=== PATIENT | male | born 1955 | race Caucasian/White ===

== ENCOUNTER → 2017-07-23 08:38 | Outpatient (POV) | payer MEDICARE, MEDICAID, SELFPAY | PROVIDERS: Visit Provider Nurse Practitioner Acute Care | DX: Z00.00 Encounter for general adult medical examination without abnormal findings (principal) ==

== ENCOUNTER → 2017-11-02 07:49 | Outpatient (CLI) | payer MEDICARE, MEDICAID, SELFPAY ==
--- NOTE | 2017-11-02 07:52 | US_ITS ---
US abdomen limited COMPARISON: Ultrasound right upper quadrant 05/05/2016 HISTORY: Previous history of gallstone, epigastric discomfort TECHNIQUE: Targeted ultrasound right upper quadrant FINDINGS: The liver is normal size and shows overall somewhat increased and coarsened echogenicity. The patient has a history of hepatitis C. The pancreas is normal. The gallbladder is normal in size. There is a focal echo with acoustic shadowing consistent with a partially calcified gallstone similar in size and appearance to the previous study. The common bile duct is normal caliber. The right kidney measures 9.2 x 5.1 x 6.8 cm and shows a good cortical medullary junction with no abnormality. IMPRESSION: Somewhat heterogenic in overall increased liver parenchyma echogenicity consistent with diffuse fatty infiltration and/or hepatitis C. Stable partially calcified gallstone similar in size to the previous exam
== END ==
PROVIDERS: PCP Family Medicine; Visit Provider Nurse Practitioner Acute Care
DX: K74.60 Unspecified cirrhosis of liver (principal)
CPT/HCPCS: 76705

== ENCOUNTER → 2018-01-14 09:13 | Outpatient (POV) | payer MEDICARE, MEDICAID, SELFPAY | PROVIDERS: Visit Provider Nurse Practitioner Acute Care | DX: Z00.00 Encounter for general adult medical examination without abnormal findings (principal) ==

== ENCOUNTER → 2018-01-17 10:39 | Outpatient (CLI) | payer MEDICARE, MEDICAID, SELFPAY ==
[2018-01-17 11:05] LABS: Anion Gap 9.7 mEq/L (5-15); Blood Urea Nitrogen 11 mg/dL (7-18); Carbon Dioxide 28 mmol/L (21.0-32.0); Chloride 99 mmol/L (98-107); Creatinine,Serum 1.05 mg/dL (0.70-1.30); Estimated Glomerular Filt Rate 72 ml/min (>60); GFR (African American) 87 ML/MIN (>60); Glucose 98 mg/dL (74-106); Potassium 3.7 mmoL/L (3.5-5.1); Sodium 133 mmol/L (136-145)
--- NOTE | 2018-01-17 12:06 | CT_ITS ---
CT abdomen w con CLINICAL INDICATION: Cirrhosis, hepatic mass ITS.REASON: HEPATIC MASS ORDERING PHYSICIAN: Valerie Roca PATIENT AGE: 62 years COMPARISON: None TECHNIQUE: Three-phase post enhanced images obtained Axial images obtained with sagittal and coronal reformats. All CT scans at the facility use one or more dose reduction, viz: automated exposure control; ma/kV adjustment per patient size (including targeted exams where dose is matched to indication; i.e. head); or iterative reconstruction technique. PROCEDURE: Oral Contrast: None IV Contrast: 75 mL of Isovue-370. FINDINGS: There are atelectatic or fibrotic changes in the right lung base posteriorly. A gallstone is noted. No biliary dilatation. No enhancing liver lesions. The liver margin is smooth present. The portal vein does not appear enlarged measuring 11 mm in AP dimension There is mild diffuse hepatic steatosis. There is a 5 mm isodensity in the intersegment of the right hepatic lobe. An 8 mm isodensity is present just posterior to the right portal vein in the right hepatic lobe. This may be due to small cyst. The spleen, pancreas, and adrenal glands have an unremarkable appearance. No renal mass or hydronephrosis. The jejunal loops are somewhat thickened. There is an area of dense calcification in the mid abdomen slightly towards the left probably related to calcified lymph nodes. This area measures approximately 2 cm. The celiac and superior mesenteric artery and renal arteries have an unremarkable appearance. IMPRESSION: 1. Mild fatty liver. 2. There are 2 isodense lesions of liver which are too small to categorize and may be due to small cysts. No suspicious liver lesions evident 3. Thickening of the jejunum which may be seen with enteritis. 4. Cholelithiasis
== END ==
PROVIDERS: Visit Provider Nurse Practitioner Acute Care
DX: K74.69 Other cirrhosis of liver (principal)
CPT/HCPCS: 36415; 74160; 80048; Q9967

== ENCOUNTER → 2018-03-25 12:41 | Outpatient (POV) | payer MEDICARE, MEDICAID, SELFPAY | PROVIDERS: Visit Provider Nurse Practitioner Acute Care | DX: Z00.00 Encounter for general adult medical examination without abnormal findings (principal) ==

== ENCOUNTER → 2018-04-17 07:40 | Outpatient (CLI) | payer MEDICARE, MEDICAID, SELFPAY ==
--- NOTE | 2018-04-17 08:00 | US_ITS ---
US abdomen limited History:Cirrhosis, abnormal liver functions Ordering Physician:Valerie Roca Patient Age: 63 years Comparison:11/02/2017 Findings: Pancreas:Unremarkable. No obvious mass or abnormal fluid collection. No ductal dilatation Liver:No focal liver lesions demonstrated. Homogeneous echogenicity. No intrahepatic biliary ductal dilatation evident. There is slight increased echogenicity of the liver suggesting hepatic steatosis Right Kidney:Unremarkable. Normal size and echogenicity. No hydronephrosis Gallbladder:Gallstone noted. No gallbladder wall thickening, pericholecystic fluid, or biliary dilatation. Impression: 1. Cholelithiasis. 2. Fatty liver
== END ==
PROVIDERS: PCP Family Medicine; Visit Provider Nurse Practitioner Acute Care
DX: K74.60 Unspecified cirrhosis of liver (principal); R94.5 Abnormal results of liver function studies
CPT/HCPCS: 76705

== ENCOUNTER → 2018-06-24 13:19 | Outpatient (POV) | payer MEDICARE, MEDICAID, SELFPAY | PROVIDERS: Visit Provider Nurse Practitioner Acute Care | DX: Z00.00 Encounter for general adult medical examination without abnormal findings (principal) ==

== ENCOUNTER → 2018-09-16 10:13 | Outpatient (POV) | payer MEDICARE, MEDICAID, SELFPAY | PROVIDERS: Visit Provider Nurse Practitioner Acute Care | DX: Z00.00 Encounter for general adult medical examination without abnormal findings (principal) ==

== ENCOUNTER → 2018-10-18 07:38 | Outpatient (CLI) | payer MEDICARE, MEDICAID, SELFPAY ==
--- NOTE | 2018-10-18 07:44 | US_ITS ---
US abdomen limited HISTORY:Follow-up cirrhosis ORDERING PHYSICIAN: Valerie Roca PATIENT AGE: 63 years Comparison: Previous ultrasound right upper quadrant pain 318 Procedure Sagittal, transverse and decubitus imaging of the gallbladder was performed. FINDINGS GALLBLADDER -gallstone evident measuring nearly 1 cm size. Thick echogenic sludge also observed extending to the neck of the gallbladder with echogenic foci. Cannot exclude some additional small stones here. Gallbladder wall normal thickness with no inflammatory changes. LIVER: . No focal liver lesions. Diffuse increased echogenicity liver. Likely reflects hepatic steatosis No intrapelvic bili ductal dilatation. Portal vein normal size and normal direction flow. Takes vein survey unremarkable PANCREAS: There is fair visualization of pancreas., Overall unremarkable. Head & body pancreas best visualized. Tail obscured RIGHT KIDNEY: Normal size 8.7 cm in length. Normal appearance.. No hydronephrosis. IMPRESSION: .... 1. Gallstone again noted. . Also note Thick echogenic sludge filling the neck of the gallbladder.. There are some specular echoes within this sludge-Cannot other tiny stones in this region. 2. Diffuse fatty changes of liver. No focal lesion. Portal vein normal
== END ==
PROVIDERS: PCP Family Medicine; Visit Provider Nurse Practitioner Acute Care
DX: K74.60 Unspecified cirrhosis of liver (principal)
CPT/HCPCS: 76705

== ENCOUNTER → 2019-07-28 10:09 | Outpatient (POV) | payer MEDICARE, MEDICAID, SELFPAY | PROVIDERS: Visit Provider Nurse Practitioner Family | DX: Z00.00 Encounter for general adult medical examination without abnormal findings (principal) ==

== ENCOUNTER → 2019-07-30 08:11 | Outpatient (CLI) | payer MEDICARE, MEDICAID, SELFPAY ==
--- NOTE | 2019-07-30 08:15 | US_ITS ---
PROCEDURE: US ABDOMEN LIMITED CLINICAL INDICATION: Follow-up Pedroza cirrhosis,GERD,HEPATITIS C COMPARISON: [facility] US abdomen limited from 10/18/2018 FINDINGS: PANCREAS: Unremarkable. No obvious mass or abnormal fluid collection. No ductal dilatation. There is mild diffuse fatty infiltration of the pancreas. LIVER: Again noted is diffuse and somewhat coarsened appearing increased echogenicity consistent with hepatic steatosis. There are no focal lesions seen. The portal vein is normal in caliber and flow hepatopetal RIGHT KIDNEY: The right kidney measures 8.4 x 4.7 by 7.0 cm and appears sonographically normal. GALLBLADDER: The gallbladder is normal in size. Again noted is a calcified gallstone which is mobile within the gallbladder showing prominent acoustic shadowing beneath. The gallstone is basically unchanged in size and overall appearance from the previous exam. IMPRESSION: Basically stable appearing liver with diffuse hepatic steatosis, no significant lobulation of the liver contour noted. Stable calcified gallstone as noted Dictated by: Dr. Jean-Paul Price MD 07/30/2019 13:[address] Jean-Paul Price MD in [place] 07/30/2019 13:53
== END ==
PROVIDERS: PCP Family Medicine; Visit Provider Nurse Practitioner Family
DX: K74.69 Other cirrhosis of liver (principal); K21.9 Gastro-esophageal reflux disease without esophagitis; B18.2 Chronic viral hepatitis C
CPT/HCPCS: 76705

== ENCOUNTER 2019-10-08 10:28 | Inpatient (IN) ==
[2019-10-08 12:15] LABS: Basophils % 0.6 % (0.1-2.0); Eosinophils % 0.3 % (0.1-12.0); Hematocrit 42.9 % (42.0-52.0); Hemoglobin 14.6 g/dL (14.1-18.0); Lymphocytes # 0.9 K/mm3 (0.7-4.5); Lymphocytes % 17.5 % (10-50); Mean Corpuscular Volume 96.5 fl (80-94); Mean Platelet Volume 8.3 fl (7.4-10.4); Monocytes # 0.5 K/mm3 (0.1-1.0); Monocytes % 8.3 % (1.7-9.3); Neutrophils % 73.3 % (37.0-80.0); Platelet Count 158 K/mm3 (142-424); Red Blood Count 4.44 M/mm3 (4.60-6.20); Red Cell Distribution Width 13.1 % (11.5-17.5); White Blood Count 5.4 K/mm3 (4.8-10.8)
[2019-10-08 12:23] LABS: Albumin Level 4.4 g/dl (3.5-5.0); Albumin/Globulin Ratio 1.3 (1.1-1.8); Anion Gap 11.6 mEq/L (5-15); Bilirubin,Total 3.8 mg/dl (0.2-1.3); Calcium 9.4 mg/dl (8.4-10.2); Globulin 3.4 g/dL (1.3-3.2); Total Protein,Serum 7.8 g/dl (6.3-8.2)
--- NOTE | 2019-10-08 12:50 | Pharmacy Consult Notes ---
[facility] Pharmacy VTE Monitoring - Patient Demographics Admission date: 10/08/19 Report Date: 10/08/19 Time: 12:49 Allergies/Adverse Reactions: Patient Allergies No Known Allergies Allergy (Unverified 07/03/17 14:17) Height: 1.83 m Weight: 81.817 kg - VTE Risk Labs: VTE Related Lab Results Hgb 14.6 g/dL (14.1-18.0) 10/08/19 12:00 Hct 42.9 % (42.0-52.0) 10/08/19 12:00 Plt Count 158 K/mm3 (142-424) 10/08/19 12:00 BUN 12 mg/dl (9-20) 10/08/19 12:00 Creatinine 1.10 mg/dl (0.66-1.25) 10/08/19 12:00 Estimated Creat Clear 81 mL/min (50-200) 10/08/19 12:00 Clinical Trial Participant: No - Prophylaxis VTE Prophylaxis Ordered?: Yes Types of VTE Prophylaxis: TEDS Knee High
--- NOTE | 2019-10-08 13:15 | Consult Report ---
History of Present Illness Consult date: 10/08/19 Requesting physician: Lui Friend Consult reason: shortness of breath Chief complaint: SOB Additional Medical History:: 1. Endocarditis approximately 5 years ago 2. Hypertension 3. Hyperlipidemia 4. Hepatitis C for which he has been cured per the patient report History of present illness: This is a 64-year-old gentleman who was admitted to the hospital from Dr. Friend's office for tachycardia. The patient states that he was in Dr. Friend's office for follow-up because he has not been feeling well for about 2 or 3 weeks. He states that he is extremely fatigued and has no energy. He states that he is really short of breath especially on exertion. He states that he is short of breath as well sometimes at rest but mostly when he is exerting himself. It does improve with rest. He denies any chest pain or chest pressure. He denies any palpitations or racing of the heart despite his tachycardia. He denies any fever, chills, nausea, vomiting, diarrhea, PND or orthopnea. The patient states that approximately 5 years ago he had endocarditis and was treated at [facility]. He states that he was on antibiotics for about 5 to 6 months but has not seen a international marketing coordinator since that time. He denies any history of coronary artery disease or TN. He denies any family history of coronary artery disease or TN. He denies smoking. He states that he used to have hepatitis C but has been treated with for this and has been cured. He states that he does drink 1 or 2 beers maybe a few times a week. He does not engage in regular drinking of alcohol. The patient states up until about 2 weeks ago he felt fine. [facility] History I have reviewed the patient's past medical history: Yes Medical History: Reports:: Hepatitis (Hep C), Hyperlipidemia, Hypertension Denies:: Diabetes Mellitus Type 1, Diabetes Mellitus Type 2, Internal Pacemaker, Lung Disease, Seizures *Have you ever received a pneumonia vaccine?: No *Have you received a flu vaccine this season?: No Other Medical History: Reports: Liver Disease (Hep c) Comment:: endocarditis Other Surgeries: No: Pacemaker Comment: tooth extraction - *Social History Educational Level: Completed High School Smoking Status: Never smoker Alcohol Intake: current Alcohol Intake Frequency:: 0-2 drinks per day *Occupational Status:: disabled *Travel in the last 8 weeks: None Family Hx:: Cancer, Stroke Meds Home Medications Medication Instructions Recorded Confirmed Type Atorvastatin Calcium [Atorvastatin 10 mg PO DAILY 03/27/18 03/27/18 History 10mg Tab] Budesonide [Budesonide EC] 3 mg PO DAILY 03/27/18 03/27/18 History Ubidecarenone [Co Q-10] 10 mg PO DAILY 03/27/18 03/27/18 History lisinopriL [Lisinopril 5mg 5 mg PO DAILY 03/27/18 03/27/18 History Tablet] Allergies Allergy/AdvReac Type Severity Reaction Status Date / Time No Known Allergies Allergy Unverified 07/03/17 14:17 Review of Systems - Review of Systems Review of systems:: pertinent systems reviewed and negative unless documented below - Constitutional Reports fatigue, Reports lack of energy, Reports weakness - *Respiratory Reports shortness of breath, Reports shortness of breath with activity Exam Vital signs and Labs for Last 24 Hours: Temp Pulse Resp BP Pulse Ox 98.8 F 138 H 20 127/94 H 97 10/08/19 11:07 10/08/19 11:07 10/08/19 11:07 10/08/19 11:07 10/08/19 11:07 Laboratory Results - last 24 hr 10/08/19 12:00: WBC 5.4, RBC 4.44 L, Hgb 14.6, Hct 42.9, MCV 96.5 H, MCH 32.8 H, MCHC 34.0, RDW 13.1, Plt Count 158, MPV 8.3, Neut % (Auto) 73.3, Lymph % (Auto) 17.5, [place] % (Auto) 8.3, Eos % (Auto) 0.3, Baso % (Auto) 0.6, Neut # (Auto) 4.0, Lymph # (Auto) 0.9, [place] # (Auto) 0.5, Eos # (Auto) 0.0, Baso # (Auto) 0.0 10/08/19 12:00: Sodium 126 L, Potassium 3.6, Chloride 94 L, Carbon Dioxide 24, Anion Gap 11.6, BUN 12, Creatinine 1.10, Estimated Creat Clear 81, Estimated GFR 68, Est GFR ( Amer) 82, Glucose 120 H, Calcium 9.4, Magnesium 1.4 L, Total Bilirubin 3.8 H, AST 492 H*, ALT 422 H*, Alkaline Phosphatase 66, Total Protein 7.8, Albumin 4.4, Globulin 3.4 H, Albumin/Globulin Ratio 1.3 10/08/19 12:00: Lactate 1.0 I & O for Last 24 hours: Intake & Output 10/05/19 10/06/19 10/07/19 10/08/19 23:59 23:59 23:59 23:59 Intake Total 240 / 240 Balance 240 / 240 Weight 180 lb 6 oz Narrative: EKG is sinus rhythm with a rate of 110. - Constitutional no acute distress, mild distress, average body habitus - *Routine HEENT Exam Head: Present: normocephalic, atraumatic Eye: Present: EOMI, PERRL ENT: Present: mucous membranes moist. Absent: dentition normal - *Routine Neck Exam Present: supple, full ROM, normal carotid upstroke. Absent: JVD, carotid bruit, lymphadenopathy - *Routine Respiratory Exam Present: CTA bilaterally - *Routine Cardiovascular Exam Present: Normal S1, Normal S2, tachycardia. Absent: murmur - *Routine Abdominal Exam Present: soft, normoactive bowel sounds. Absent: tenderness, distended, rebound - *Routine Extremities Exam Present: full ROM, pulses intact, normal capillary refill. Absent: cyanosis, clubbing, edema - *Routine Skin Exam Present: intact, warm. Absent: erythema, rash - *Routine Neurological Exam Present: alert, oriented X3, CN II-XII intact. Absent: sensory deficit, motor deficit - Routine Psychiatric Exam Present: normal affect, normal thought process Assessment and Plan (1) Shortness of breath Current visit: Yes Status: Acute Category: Medical Code(s): R06.02 - Shortness of breath (2) Fatigue Current visit: Yes Status: Acute Category: Medical Code(s): R53.83 - Other fatigue (3) Congestive heart failure Current visit: Yes Status: Acute Category: Medical Code(s): I50.9 - Heart failure, unspecified (4) Hepatitis Current visit: Yes Status: Acute Category: Medical Code(s): K75.9 - Inflammatory liver disease, unspecified (5) Hypertension Current visit: Yes Status: Chronic Category: Medical Code(s): I10 - Essential (primary) hypertension (6) Hyperlipidemia Current visit: Yes Status: Chronic Category: Medical Code(s): E78.5 - Hyperlipidemia, unspecified (7) History of hepatitis C Current visit: Yes Status: Chronic Category: Medical Code(s): Z86.19 - Personal history of other infectious and parasitic diseases (8) History of endocarditis Current visit: Yes Status: Chronic Category: Medical Code(s): Z86.79 - Personal history of other diseases of the circulatory system (9) Hyponatremia Current visit: Yes Status: Acute Category: Medical Code(s): E87.1 - Hypo- osmolality and hyponatremia - Assessment and plan all Dx Assessment and Plan for all problems:: Plan: 1. The patient was admitted to the hospital from Dr. Friend's office secondary to tachycardia. The patient is in sinus rhythm. When I am speaking to him his heart rate does jump up to about 130 but when he is at rest his heart rate is around 110. The patient denies any palpitations or racing of the heart. He denies any chest pain or chest pressure. 2. We will get serial troponins to rule out an TN. 3. The patient likely has systolic congestive heart failure from his history. We do suspect that this may be an alcoholic cardiomyopathy based on his labs and his history. We will get an echocardiogram at this time to evaluate his LV function. If the patient does have systolic congestive heart failure then he will need to be diuresed with Lasix first. Then he will need to be started on MARIANELA inhibitor's followed by beta-blockers after he is initiated on an MARIANELA inhibitor. 4. We will stop his IV fluids per Dr. Panchal as he is most likely in failure and does not need fluids because he likely has too much free water as it is. 5. The patient does have elevated liver enzymes. He does report having a history of hepatitis C. This elevation in his liver enzymes may be from the congestive heart failure as well. 6. The patient is hyponatremic. This will likely improve with diuresis if this is from congestive heart failure. Although, this may be from alcohol use as well. will continue to follow. 7. We will get a brain natriuretic peptide as well as a thyroid panel. 8. His blood pressure is well controlled. 9. His LDL goal is less than 100. We will get a lipid panel in the morning. 10. As mentioned above the patient is tachycardic. We will not put him on any heart rate lowering medications at this time until we find out what his ejection fraction is. If he is in systolic congestive heart failure, diuresis will likely help to improve his heart rate. 11. Further recommendations will be made pending the patient's response to treatment and the results of his echocardiogram. Thank you for the opportunity to help participate in the care of this patient.
[2019-10-08 13:47] LABS: Thyroid Stimulating Hormone 1.65 uIU/mL (0.465-4.68)
--- NOTE | 2019-10-08 15:51 | Progress Note ---
Internal Medicine - PN: Subj *Date: 10/08/19 *Time: 15:48 Interval history: This patient was admitted from my office, [facility]. See H&P from the office. In the office his heart rate was 130 and he was aware of this. He was not having chest pain. He has had persistent cough and congestion over a period of weeks. See immunization list. No travel outside [place]. Exam Vital signs and Labs for Last 24 Hours: Temp Pulse Resp BP Pulse Ox 98.8 F 100 H 20 127/94 H 97 10/08/19 11:07 10/08/19 12:27 10/08/19 11:07 10/08/19 11:07 10/08/19 11:07 Laboratory Results - last 24 hr 10/08/19 12:00: WBC 5.4, RBC 4.44 L, Hgb 14.6, Hct 42.9, MCV 96.5 H, MCH 32.8 H, MCHC 34.0, RDW 13.1, Plt Count 158, MPV 8.3, Neut % (Auto) 73.3, Lymph % (Auto) 17.5, [place] % (Auto) 8.3, Eos % (Auto) 0.3, Baso % (Auto) 0.6, Neut # (Auto) 4.0, Lymph # (Auto) 0.9, [place] # (Auto) 0.5, Eos # (Auto) 0.0, Baso # (Auto) 0.0 10/08/19 12:00: Sodium 126 L, Potassium 3.6, Chloride 94 L, Carbon Dioxide 24, Anion Gap 11.6, BUN 12, Creatinine 1.10, Estimated Creat Clear 81, Estimated GFR 68, Est GFR ( Amer) 82, Glucose 120 H, Calcium 9.4, Magnesium 1.4 L, Total Bilirubin 3.8 H, AST 492 H*, ALT 422 H*, Alkaline Phosphatase 66, Total Protein 7.8, Albumin 4.4, Globulin 3.4 H, Albumin/Globulin Ratio 1.3 10/08/19 12:00: Lactate 1.0 10/08/19 12:00: NT-Pro-B Natriuret Pep 270 H, TSH 1.65 10/08/19 12:00: Free T4 1.53 10/08/19 12:00: Troponin I 0.03 I & O for Last 24 hours: Intake & Output 10/06/19 10/07/19 10/08/19 10/09/19 11:59 11:59 11:59 11:59 Intake Total 240 / 240 Balance 240 / 240 Weight 180 lb 6 oz - Constitutional no acute distress - *Routine Respiratory Exam Present: CTA bilaterally - *Routine Cardiovascular Exam Present: tachycardia (Narrow complex) - *Routine Extremities Exam Present: edema (1+) Assessment and Plan (1) Shortness of breath Current visit: Yes Status: Acute Category: Medical Code(s): R06.02 - Shortness of breath (2) Fatigue Current visit: Yes Status: Acute Category: Medical Code(s): R53.83 - Other fatigue (3) Congestive heart failure Current visit: Yes Status: Acute Category: Medical Code(s): I50.9 - Heart failure, unspecified (4) Hepatitis Current visit: Yes Status: Acute Category: Medical Code(s): K75.9 - Inflammatory liver disease, unspecified (5) Hypertension Current visit: Yes Status: Chronic Category: Medical Code(s): I10 - Essential (primary) hypertension (6) Hyperlipidemia Current visit: Yes Status: Chronic Category: Medical Code(s): E78.5 - Hyperlipidemia, unspecified (7) History of hepatitis C Current visit: Yes Status: Chronic Category: Medical Code(s): Z86.19 - Personal history of other infectious and parasitic diseases (8) History of endocarditis Current visit: Yes Status: Chronic Category: Medical Code(s): Z86.79 - Personal history of other diseases of the circulatory system (9) Hyponatremia Current visit: Yes Status: Acute Category: Medical Code(s): E87.1 - Hypo- osmolality and hyponatremia - Assessment and plan all Dx Assessment and Plan for all problems:: See orders. Cardiology consult. Cardiac telemetry.
--- NOTE | 2019-10-08 21:37 | Electrocardiograph Report ---
APPROVED REPORT Exam: Resting ECG HR:110 bpm ECG Measurements Heart Rate 110 AXES WA 152 P 49 QRSd 68 QRS 42 QT 302 T47 QTc 408 <Conclusion> Sinus tachycardia Otherwise normal ECG Electronically signed by : Bruce Obando, 10/08/2019 21:37:12
[2019-10-09 08:21] LABS: Anion Gap 16.2 mEq/L (5-15)
[2019-10-09 08:22] LABS: Calcium 9.3 mg/dl (8.4-10.2); Chol/HDL Ratio 2.3 (1-3.5)
[2019-10-09 08:23] LABS: Basophils % 0.7 % (0.1-2.0); Eosinophils % 0.7 % (0.1-12.0); Hematocrit 45.5 % (42.0-52.0); Lymphocytes # 1.3 K/mm3 (0.7-4.5); Lymphocytes % 23.6 % (10-50); Mean Corpuscular HGB Conc 32.9 g/dL (31.8-35.4); Mean Platelet Volume 8.6 fl (7.4-10.4); Monocytes # 0.4 K/mm3 (0.1-1.0); Monocytes % 7.8 % (1.7-9.3); Neutrophils # 3.7 K/mm3 (1.8-7.8); Neutrophils % 67.1 % (37.0-80.0); Platelet Count 158 K/mm3 (142-424); Red Blood Count 4.51 M/mm3 (4.60-6.20); Red Cell Distribution Width 13.2 % (11.5-17.5); White Blood Count 5.5 K/mm3 (4.8-10.8)
--- NOTE | 2019-10-09 08:37 | Progress Note ---
Subjective Date: 10/09/19 Time: 08:34 Principal diagnosis: Tachycardia, Cirrhosis of liver Interval history: 64-year-old white male in bed in no acute distress. Patient has continued to have a tachycardic heart rate with some shortness of breath with minimal exertion such as getting out of bed and going to the bathroom. Patient denies any chest pain, pressure or tightness. Longstanding history of cirrhosis of the liver likely due to combination of hepatitis C infection (previously treated per patient) and alcohol abuse. Patient denies regular alcohol use since diagnosis in the last few years. He was followed by Dr. Au in the past. Exam Vital signs and Labs for Last 24 Hours: Temp Pulse Resp BP Pulse Ox 98.6 F 98 H 18 117/76 92 L 10/09/19 04:00 10/09/19 06:00 10/09/19 06:00 10/09/19 06:00 10/09/19 06:00 Laboratory Results - last 24 hr 10/08/19 12:00: WBC 5.4, RBC 4.44 L, Hgb 14.6, Hct 42.9, MCV 96.5 H, MCH 32.8 H, MCHC 34.0, RDW 13.1, Plt Count 158, MPV 8.3, Neut % (Auto) 73.3, Lymph % (Auto) 17.5, [place] % (Auto) 8.3, Eos % (Auto) 0.3, Baso % (Auto) 0.6, Neut # (Auto) 4.0, Lymph # (Auto) 0.9, [place] # (Auto) 0.5, Eos # (Auto) 0.0, Baso # (Auto) 0.0 10/08/19 12:00: Sodium 126 L, Potassium 3.6, Chloride 94 L, Carbon Dioxide 24, Anion Gap 11.6, BUN 12, Creatinine 1.10, Estimated Creat Clear 81, Estimated GFR 68, Est GFR ( Amer) 82, Glucose 120 H, Calcium 9.4, Magnesium 1.4 L, Total Bilirubin 3.8 H, AST 492 H*, ALT 422 H*, Alkaline Phosphatase 66, Total Protein 7.8, Albumin 4.4, Globulin 3.4 H, Albumin/Globulin Ratio 1.3 10/08/19 12:00: Lactate 1.0 10/08/19 12:00: NT-Pro-B Natriuret Pep 270 H, TSH 1.65 10/08/19 12:00: Free T4 1.53 10/08/19 12:00: Troponin I 0.03 10/08/19 19:33: Troponin I 0.02 10/09/19 01:25: Troponin I 0.02 10/09/19 08:05: WBC 5.5, RBC 4.51 L, Hgb 15.0, Hct 45.5, MCV 101.0 H, MCH 33.2 H , MCHC 32.9, RDW 13.2, Plt Count 158, MPV 8.6, Neut % (Auto) 67.1, Lymph % (Auto) 23.6, [place] % (Auto) 7.8, Eos % (Auto) 0.7, Baso % (Auto) 0.7, Neut # (Auto) 3.7, Lymph # (Auto) 1.3, [place] # (Auto) 0.4, Eos # (Auto) 0.0, Baso # (Auto) 0.0 10/09/19 08:05: Sodium 134 L, Potassium 3.2 L, Chloride 94 L I & O for Last 24 hours: Intake & Output 10/06/19 10/07/19 10/08/19 10/09/19 11:59 11:59 11:59 11:59 Intake Total 300 / 300 Output Total 550 / 550 Balance -250 / -250 Weight 180 lb 6 oz 183 lb - *Routine HEENT Exam Head: Present: normocephalic Eye: Present: EOMI, PERRL ENT: Present: mucous membranes moist - *Routine Respiratory Exam Present: CTA bilaterally. Absent: accessory muscle use, rales, rhonchi, wheezes - *Routine Cardiovascular Exam Present: RRR, tachycardia. Absent: murmur, gallop, rubs - *Routine Extremities Exam Absent: edema, calf tenderness - *Routine Neurological Exam Present: alert, oriented X3, moving all extremities Progress Note: A&P (1) Shortness of breath Status: Acute Current Visit: Yes (2) Fatigue Status: Acute Current Visit: Yes (3) Congestive heart failure Status: Acute Current Visit: Yes (4) Hepatitis Status: Acute Current Visit: Yes (5) Hypertension Status: Chronic Current Visit: Yes (6) Hyperlipidemia Status: Chronic Current Visit: Yes (7) History of hepatitis C Status: Chronic Current Visit: Yes (8) History of endocarditis Status: Chronic Current Visit: Yes (9) Hyponatremia Status: Acute Current Visit: Yes Assessment and Plan for All Diagnoses:: 1. Tachycardia, will start low-dose bisoprolol this a.m. with official echocardiogram results pending 2. Mild congestive heart failure felt secondary to diastolic dysfunction, continue diuretic therapy. Labs reviewed. 3. Cirrhosis of the liver, chronic 4. Fatigue, workup per Dr. Friend 5. Hypokalemia, supplement started.
--- NOTE | 2019-10-09 08:45 | Progress Note ---
Internal Medicine - PN: Subj *Date: 10/09/19 *Time: 08:41 Interval history: Patient has continued to have a tachycardic heart rate along with shortness of breath with exertion. He denies any chest pain, pressure or tightness. He slept well last night and ate well this morning. Exam Vital signs and Labs for Last 24 Hours: Temp Pulse Resp BP Pulse Ox 98.6 F 98 H 18 117/76 92 L 10/09/19 04:00 10/09/19 06:00 10/09/19 06:00 10/09/19 06:00 10/09/19 06:00 Laboratory Results - last 24 hr 10/08/19 12:00: WBC 5.4, RBC 4.44 L, Hgb 14.6, Hct 42.9, MCV 96.5 H, MCH 32.8 H, MCHC 34.0, RDW 13.1, Plt Count 158, MPV 8.3, Neut % (Auto) 73.3, Lymph % (Auto) 17.5, [place] % (Auto) 8.3, Eos % (Auto) 0.3, Baso % (Auto) 0.6, Neut # (Auto) 4.0, Lymph # (Auto) 0.9, [place] # (Auto) 0.5, Eos # (Auto) 0.0, Baso # (Auto) 0.0 10/08/19 12:00: Sodium 126 L, Potassium 3.6, Chloride 94 L, Carbon Dioxide 24, Anion Gap 11.6, BUN 12, Creatinine 1.10, Estimated Creat Clear 81, Estimated GFR 68, Est GFR ( Amer) 82, Glucose 120 H, Calcium 9.4, Magnesium 1.4 L, Total Bilirubin 3.8 H, AST 492 H*, ALT 422 H*, Alkaline Phosphatase 66, Total Protein 7.8, Albumin 4.4, Globulin 3.4 H, Albumin/Globulin Ratio 1.3 10/08/19 12:00: Lactate 1.0 10/08/19 12:00: NT-Pro-B Natriuret Pep 270 H, TSH 1.65 10/08/19 12:00: Free T4 1.53 10/08/19 12:00: Troponin I 0.03 10/08/19 19:33: Troponin I 0.02 10/09/19 01:25: Troponin I 0.02 10/09/19 08:05: Troponin I < 0.01 10/09/19 08:05: WBC 5.5, RBC 4.51 L, Hgb 15.0, Hct 45.5, MCV 101.0 H, MCH 33.2 H , MCHC 32.9, RDW 13.2, Plt Count 158, MPV 8.6, Neut % (Auto) 67.1, Lymph % (Auto) 23.6, [place] % (Auto) 7.8, Eos % (Auto) 0.7, Baso % (Auto) 0.7, Neut # (Auto) 3.7, Lymph # (Auto) 1.3, [place] # (Auto) 0.4, Eos # (Auto) 0.0, Baso # (Auto) 0.0 10/09/19 08:05: Sodium 134 L, Potassium 3.2 L, Chloride 94 L, Carbon Dioxide 27, Anion Gap 16.2 H, BUN 18 D, Creatinine 1.30 H, Estimated Creat Clear 69, Estimated GFR 56 L, Est GFR ( Amer) 68, Glucose 131 H, Calcium 9.3, Triglycerides 79, Cholesterol 178, LDL Cholesterol Direct 70.64 L, VLDL Cholesterol 16, HDL Cholesterol 78 H, Cholesterol/HDL Ratio 2.3 I & O for Last 24 hours: Intake & Output 10/06/19 10/07/19 10/08/19 10/09/19 11:59 11:59 11:59 11:59 Intake Total 300 / 300 Output Total 550 / 550 Balance -250 / -250 Weight 180 lb 6 oz 183 lb - Constitutional no acute distress - *Routine Respiratory Exam Present: CTA bilaterally - *Routine Cardiovascular Exam Present: tachycardia - *Routine Abdominal Exam Present: soft, normoactive bowel sounds. Absent: tenderness - *Routine Extremities Exam Absent: cyanosis, clubbing, edema - *Routine Skin Exam Present: warm. Absent: rash - *Routine Neurological Exam Present: alert, oriented X3 Assessment and Plan (1) Shortness of breath Current visit: Yes Status: Acute Category: Medical Code(s): R06.02 - Shortness of breath (2) Fatigue Current visit: Yes Status: Acute Category: Medical Code(s): R53.83 - Other fatigue (3) Congestive heart failure Current visit: Yes Status: Acute Category: Medical Code(s): I50.9 - Heart failure, unspecified (4) Hepatitis Current visit: Yes Status: Acute Category: Medical Code(s): K75.9 - Inflammatory liver disease, unspecified (5) Hypertension Current visit: Yes Status: Chronic Category: Medical Code(s): I10 - Essential (primary) hypertension (6) Hyperlipidemia Current visit: Yes Status: Chronic Category: Medical Code(s): E78.5 - Hype rlipidemia, unspecified (7) History of hepatitis C Current visit: Yes Status: Chronic Category: Medical Code(s): Z86.19 - Personal history of other infectious and parasitic diseases (8) History of endocarditis Current visit: Yes Status: Chronic Category: Medical Code(s): Z86.79 - Personal history of other diseases of the circulatory system (9) Hyponatremia Current visit: Yes Status: Acute Category: Medical Code(s): E87.1 - Hypo- osmolality and hyponatremia (10) Hypokalemia Current visit: Yes Status: Acute Category: Medical Code(s): E87.6 - Hypokalemia - Assessment and plan all Dx Assessment and Plan for all problems:: Patient has been started on bisoprolol and diuretics. He is still tachycardic. Cardiology to see patient today. Awaiting echo report. Will add potassium today.
--- NOTE | 2019-10-09 16:50 | Cardiology Report ---
APPROVED REPORT EXAM: Comprehensive 2D, Doppler, and color-flow Echocardiogram [employer] Service Specialist: Maricarmen Barlow CRT Ht: 6 ft 0 in Wt: 180lbs BSA: 2.04 BP: 127/94 mmHg Indications: Shortness of Breath, Fatigue, Hyperlipidemia, Hypertension/HDD, endocarditis 5 yrs ago after dental extractions 2D Dimensions LVOT 2.71 cm (M/F) 1.5-2.5 M-Mode Dimensions RVDd 2.60 cm (0.9-2.6)LVDd 5.42 cm (3.5-5.7) LVDs 3.96 cm (3.5-5.7)IVSd 1.11 cm (0.6-1.1) PWd 0.29 cm (0.6-1.1)EF (Teich) 52.10% FS 26.90% EDV (Teich) 142.50 mL ESV (Teich) 68.30 mL Left Ventricle Left atrium is mildly enlarged, left ventricle is normal size, hyperdynamic left ventricular systolic response, visually estimated ejection fraction over 65% with no regional wall motion abnormality, endocardial surfaces are poorly visualized, Doppler evidence of impaired LV relaxation seen, there is no tissue Doppler performed. Right Ventricle Right atrium and right ventricular relatively normal size and function. Aortic Valve Aortic valve leaflets are not well visualized, Doppler is not indicated above aortic stenosis or aortic insufficiency. Mitral Valve Mitral valve is grossly normal, there is mild mitral regurgitation. Tricuspid Valve Tricuspid valve is poorly visualized, there is mild tricuspid regurgitation. Pulmonic Valve Pulmonic valve is poorly visualized. Great Vessels Aortic root is normal size. Pericardium No significant pericardial effusion noted. Conclusion 1. Technically difficult study because of the patient factors and poor acoustic windows valvular structures are not well visualized. 2. Normal left ventricular size, hyperdynamic left ventricular systolic function, visually estimated ejection fraction over 65% with no regional wall motion abnormality, endocardial surfaces are poorly visualized. Doppler evidence of impaired LV relaxation seen. 3. Mild mitral and tricuspid regurgitation. 4. No significant pericardial effusion noted. Electronically signed by : Efraín Moreira, 10/09/2019 16:50:15
--- NOTE | 2019-10-10 08:00 | Progress Note ---
Subjective Date: 10/10/19 Time: 07:54 Principal diagnosis: Tachycardia, Cirrhosis of liver Interval history: 64 yo WM in bed in NAD. SOA has improved as HR improved. No complaints. Exam Vital signs and Labs for Last 24 Hours: Temp Pulse Resp BP Pulse Ox 98.8 F 89 18 103/72 L 92 L 10/10/19 04:00 10/10/19 04:00 10/10/19 04:00 10/10/19 04:00 10/10/19 04:00 Laboratory Results - last 24 hr 10/09/19 08:05: Troponin I < 0.01 10/09/19 08:05: WBC 5.5, RBC 4.51 L, Hgb 15.0, Hct 45.5, MCV 101.0 H, MCH 33.2 H , MCHC 32.9, RDW 13.2, Plt Count 158, MPV 8.6, Neut % (Auto) 67.1, Lymph % (Auto) 23.6, [place] % (Auto) 7.8, Eos % (Auto) 0.7, Baso % (Auto) 0.7, Neut # (Auto) 3.7, Lymph # (Auto) 1.3, [place] # (Auto) 0.4, Eos # (Auto) 0.0, Baso # (Auto) 0.0 10/09/19 08:05: Sodium 134 L, Potassium 3.2 L, Chloride 94 L, Carbon Dioxide 27, Anion Gap 16.2 H, BUN 18 D, Creatinine 1.30 H, Estimated Creat Clear 69, Estimated GFR 56 L, Est GFR ( Amer) 68, Glucose 131 H, Calcium 9.3, Triglycerides 79, Cholesterol 178, LDL Cholesterol Direct 70.64 L, VLDL Cholesterol 16, HDL Cholesterol 78 H, Cholesterol/HDL Ratio 2.3 I & O for Last 24 hours: Intake & Output 10/07/19 10/08/19 10/09/19 10/10/19 11:59 11:59 11:59 11:59 Intake Total 300 / 300 480 / 480 Output Total 550 / 550 1050 / 1050 Balance -250 / -250 -570 / -570 Weight 180 lb 6 oz 183 lb 186 lb 6 oz - *Routine HEENT Exam Head: Present: normocephalic Eye: Present: EOMI, PERRL ENT: Present: mucous membranes moist - *Routine Respiratory Exam Present: CTA bilaterally. Absent: accessory muscle use, rales, rhonchi, wheezes - *Routine Cardiovascular Exam Present: RRR. Absent: murmur, gallop, rubs - *Routine Abdominal Exam Present: soft. Absent: tenderness, distended, guarding - *Routine Extremities Exam Absent: edema, calf tenderness - *Routine Neurological Exam Present: alert, oriented X3, moving all extremities Progress Note: A&P (1) Shortness of breath Status: Acute (2) Fatigue Status: Acute (3) Congestive heart failure Status: Acute (4) Hepatitis Status: Acute (5) Hypertension Status: Chronic (6) Hyperlipidemia Status: Chronic (7) History of hepatitis C Status: Chronic (8) History of endocarditis Status: Chronic (9) Hyponatremia Status: Acute Assessment and Plan for All Diagnoses:: 1. Sinus tachycardia, improved on bisoprolol therapy. 2. Hypokalemia, on replacement therapy with Aldactone also 3. History of hepatitis C (previously treated) and cirrhosis of the liver 4. Hyponatremia, follow-up lab results pending 5. Diastolic dysfunction on echocardiogram with acute on chronic congestive heart failure, resolved with Lasix/spironolactone therapy. Renal functions stable. Na and K improved. OK for discharge from cardiology standpoint. Follow up in 2 wks.
[2019-10-10 08:08] LABS: Anion Gap 16.5 mEq/L (5-15)
--- NOTE | 2019-10-10 08:25 | Progress Note ---
Internal Medicine - PN: Subj *Date: 10/10/19 *Time: 08:23 Interval history: Patient states he feels much better this morning. His shortness of breath has improved as his heart rate has improved. His heart rates is in the upper 90s this morning. He states he has been up to the bathroom without any shortness of breath. He slept well and ate well and is anxious to go home. Exam Vital signs and Labs for Last 24 Hours: Temp Pulse Resp BP Pulse Ox 98.8 F 89 18 103/72 L 92 L 10/10/19 04:00 10/10/19 04:00 10/10/19 04:00 10/10/19 04:00 10/10/19 04:00 Laboratory Results - last 24 hr 10/09/19 08:05: Troponin I < 0.01 10/09/19 08:05: WBC 5.5, RBC 4.51 L, Hgb 15.0, Hct 45.5, MCV 101.0 H, MCH 33.2 H , MCHC 32.9, RDW 13.2, Plt Count 158, MPV 8.6, Neut % (Auto) 67.1, Lymph % (Auto) 23.6, [place] % (Auto) 7.8, Eos % (Auto) 0.7, Baso % (Auto) 0.7, Neut # (Auto) 3.7, Lymph # (Auto) 1.3, [place] # (Auto) 0.4, Eos # (Auto) 0.0, Baso # (Auto) 0.0 10/09/19 08:05: Carbon Dioxide 27, Anion Gap 16.2 H, BUN 18 D, Creatinine 1.30 H, Estimated Creat Clear 69, Estimated GFR 56 L, Est GFR ( Amer) 68, Glucose 131 H, Calcium 9.3, Triglycerides 79, Cholesterol 178, LDL Cholesterol Direct 70.64 L, VLDL Cholesterol 16, HDL Cholesterol 78 H, Cholesterol/HDL Ratio 2.3 10/10/19 07:43: Sodium 133 L, Potassium 3.5, Chloride 92 L, Carbon Dioxide 28, Anion Gap 16.5 H, BUN 20, Creatinine 1.30 H, Estimated Creat Clear 70, Estimated GFR 56 L, Est GFR ( Amer) 68, Glucose 123 H, Calcium 9.0 I & O for Last 24 hours: Intake & Output 10/07/19 10/08/19 10/09/19 10/10/19 11:59 11:59 11:59 11:59 Intake Total 300 / 300 480 / 480 Output Total 550 / 550 1050 / 1050 Balance -250 / -250 -570 / -570 Weight 180 lb 6 oz 183 lb 186 lb 6 oz - Constitutional no acute distress - *Routine Respiratory Exam Present: CTA bilaterally - *Routine Cardiovascular Exam Present: RRR - *Routine Abdominal Exam Present: soft, normoactive bowel sounds. Absent: tenderness - *Routine Extremities Exam Absent: cyanosis, clubbing, edema - *Routine Skin Exam Present: warm. Absent: rash - *Routine Neurological Exam Present: alert, oriented X3 Assessment and Plan (1) Shortness of breath Current visit: Yes Status: Acute Category: Medical Code(s): R06.02 - Shortness of breath (2) Fatigue Current visit: Yes Status: Acute Category: Medical Code(s): R53.83 - Other fatigue (3) Congestive heart failure Current visit: Yes Status: Acute Category: Medical Code(s): I50.9 - Heart failure, unspecified (4) Hepatitis Current visit: Yes Status: Acute Category: Medical Code(s): K75.9 - Inflammatory liver disease, unspecified (5) Hypertension Current visit: Yes Status: Chronic Category: Medical Code(s): I10 - Essential (primary) hypertension (6) Hyperlipidemia Current visit: Yes Status: Chronic Category: Medical Code(s): E78.5 - Hyperlipidemia, unspecified (7) History of hepatitis C Current visit: Yes Status: Chronic Category: Medical Code(s): Z86.19 - Personal history of other infectious and parasitic diseases (8) History of endocarditis Current visit: Yes Status: Chronic Category: Medical Code(s): Z86.79 - Personal history of other diseases of the circulatory system (9) Hyponatremia Current visit: Yes Status: Acute Category: Medical Code(s): E87.1 - Hypo- osmolality and hyponatremia - Assessment and plan all Dx Assessment and Plan for all problems:: The patient's sinus tachycardia has improved on bisoprolol therapy. Hypokalemia is being treated with replacement potassium as well as spironolactone. His echo showed diastolic dysfunction with acute on chronic congestive heart failure which seems to have improved with the Lasix and spironolactone therapy. Cardiology feels he can be discharged today.
--- NOTE | 2019-10-10 09:43 | Discharge Summary ---
General - General Admission date:: 10/08/19 Discharge date: 10/10/19 HPI HPI: Mr. Lala is a 64-year-old male who was admitted directly from the office of [facility] for tachycardia. The patient states that he was in Dr. Friend's office for follow-up because he has not been feeling well for about 2 or 3 weeks. He states that he has been extremely fatigued and has no energy. He states that he is short of breath especially on exertion. He denies any chest pain or chest pressure. He denies any palpitations or racing of the heart despite his tachycardia. He denies any fever, chills, nausea, vomiting, diarrhea, PND or orthopnea. The patient states that approximately 5 years ago he had endocarditis and was treated at [facility]. He states that he was on antibiotics for about 5 to 6 months but has not seen a appeals coordinator since that time. He denies any history of coronary artery disease or SD. He denies any family history of coronary artery disease or SD. He denies smoking. Hospital Course Hospital Course: The patient's initial chest x-ray showed nothing acute. He was admitted and seen by cardiology. An echo was ordered and it showed an ejection fraction of greater than 65%. His BNP was elevated at 270. He was started on Lasix 40 mg twice daily and Aldactone 50 mg twice daily. He was also started on bisoprolol for rate control. His potassium was low and this was replaced. His heart rate improved with the bisoprolol. His shortness of breath improved as well and he was anxious to go home. He was stable to be discharged on spironolactone, Lasix, potassium, and bisoprolol. He will follow-up with Dr. Friend as well as cardiology. Objective Vital signs: Temp Pulse Resp BP Pulse Ox 99.7 F H 100 H 19 117/81 98 10/10/19 08:00 10/10/19 08:00 10/10/19 08:00 10/10/19 08:00 10/10/19 08:00 Narrative: General Appearance: NAD. HEENT: unremarkable. Oral cavity: no lesions, mucosa moist and WNL, no erythema. Neck: supple, no lymphadenopathy. Chest: normal shape and expansion. Heart: HR reg 130. Lungs: clear to auscultation. Abdomen: soft and nontender. Neurologic Exam: Intact, gait normal. Skin: normal, no rash. Back: normal. Extremities: no leg edema. Results Labs on day of discharge: Labs from last 24 hours 10/10/19 07:43 Sodium 133 L Potassium 3.5 Chloride 92 L Carbon Dioxide 28 Anion Gap 16.5 H BUN 20 Creatinine 1.30 H Estimated Creat Clear 70 Estimated GFR 56 L Est GFR ( Amer) 68 Glucose 123 H Calcium 9.0 DS: Diagnosis - Discharge Diagnosis (1) Shortness of breath Status: Acute (2) Fatigue Status: Acute (3) Congestive heart failure Status: Acute (4) Hepatitis Status: Acute (5) Hypertension Status: Chronic (6) Hyperlipidemia Status: Chronic (7) History of hepatitis C Status: Chronic (8) History of endocarditis Status: Chronic (9) Hyponatremia Status: Acute Discharge Plan - Patient Discharge Instructions Patient Instructions: Tachycardia, DI for Tachycardia - Follow up Plan Follow up with: Lui Friend MD [Primary Care Provider] - 10/15/19 Disposition: Home, Self-Shelter Medications: Home Medications Medication Instructions Recorded Confirmed Type Atorvastatin Calcium [Atorvastatin 10 mg PO HS 03/27/18 10/08/19 History 10mg Tab] Budesonide [Budesonide EC] 9 mg PO DAILY 03/27/18 10/08/19 History Ubidecarenone [Co Q-10] 100 mg PO DAILY 03/27/18 10/08/19 History lisinopriL [Lisinopril 5mg 5 mg PO DAILY 03/27/18 10/08/19 History Tablet] Omeprazole 20 mg PO DAILY 10/08/19 10/08/19 History Furosemide [Lasix 40mg tablet] 40 mg PO BIDL #60 tab 10/10/19 Rx Potassium Chloride [Klor-con 20 20 meq PO DAILY #30 tab 10/10/19 Rx mEq tablet] Spironolactone [Aldactone 25mg 25 mg PO DAILY #30 tab 10/10/19 Rx Tab] bisoproloL fumarate [Zebeta 5mg 5 mg PO DAILY #30 tab 10/10/19 Rx tablet] Prescriptions/Medication Reconciliation: New Spironolactone [Aldactone 25mg Tab] 25 mg PO DAILY #30 tab Furosemide [Lasix 40mg tablet] 40 mg PO BIDL #60 tab Potassium Chloride [Klor-con 20 mEq tablet] 20 meq PO DAILY #30 tab bisoproloL fumarate [Zebeta 5mg tablet] 5 mg PO DAILY #30 tab Continued Ubidecarenone [Co Q-10] 100 mg PO DAILY lisinopriL [Lisinopril 5mg Tablet] 5 mg PO DAILY Budesonide [Budesonide EC] 9 mg PO DAILY Omeprazole 20 mg PO DAILY Atorvastatin Calcium [Atorvastatin 10mg Tab] 10 mg PO HS Discontinued Potassium Chloride 10 meq PO DAILY - Problem Reconciliation Problems Reviewed?: Yes
== END 2019-10-10 10:15 | disposition home or self-care (01) | DRG 291 ==
LOC: 2ND → OBSVTOIN 10:36 → 2ND 12:18
PROVIDERS: ADMIT Family Medicine; ATTEND Family Medicine

== ENCOUNTER → 2019-12-31 12:16 | Outpatient (CLI) | payer MEDICARE, MEDICAID, SELFPAY | PROVIDERS: PCP Family Medicine; Visit Provider Family Medicine | DX: R42 Dizziness and giddiness (principal) | CPT/HCPCS: 93225; 93226 ==

== ENCOUNTER → 2020-01-26 08:35 | Outpatient (POV) | payer MEDICARE, MEDICAID, SELFPAY | PROVIDERS: Visit Provider Nurse Practitioner Family | DX: Z00.00 Encounter for general adult medical examination without abnormal findings (principal) ==

== ENCOUNTER → 2020-01-28 09:29 | Outpatient (CLI) | payer MEDICARE, MEDICAID, SELFPAY ==
--- NOTE | 2020-01-28 09:36 | US_ITS ---
PROCEDURE: US ABDOMEN LIMITED CLINICAL INDICATION: RUQ US W/ DOPPLER OF HEPATIC AND PORTAL VESSELS COMPARISON: US ABDOMEN LIMITED from 07/30/2019 FINDINGS: PANCREAS: Unremarkable. No obvious mass or abnormal fluid collection. No ductal dilatation LIVER: The liver has a somewhat coarse echotexture. There is appropriate direction of blood flow within a non dilated portal vein. Portal vein measures 8 mm. The a patent veins have an unremarkable appearance. RIGHT KIDNEY: Unremarkable. Normal size and echogenicity. No hydronephrosis GALLBLADDER: Gallstones noted. No gallbladder wall thickening, pericholecystic fluid, or biliary dilatation. IMPRESSION: 1. Cholelithiasis 2. Normal-sized portal vein with appropriate direction of blood flow 3. Coarse echotexture of the liver nonspecific Dictated by: David Lockhart MD 01/28/2020 13:21 Electronically signed by David Lockhart MD in [place] 01/28/2020 13:21
== END ==
PROVIDERS: PCP Family Medicine; Visit Provider Nurse Practitioner Family
DX: K74.69 Other cirrhosis of liver (principal); K21.9 Gastro-esophageal reflux disease without esophagitis; B18.2 Chronic viral hepatitis C; K75.4 Autoimmune hepatitis; K30 Functional dyspepsia
CPT/HCPCS: 76705

== ENCOUNTER → 2020-03-10 07:44 | Outpatient (CLI) | payer MEDICARE, MEDICAID, SELFPAY ==
[2020-03-10 08:22] LABS: Blood Urea Nitrogen 6 mg/dl (9-20); Estimated Glomerular Filt Rate 98 ml/min (>60); GFR (African American) 118 ML/MIN (>60)
--- NOTE | 2020-03-10 09:27 | MR_ITS ---
PROCEDURE: MR HEAD/BRAIN WO/W CON CLINICAL INDICATION: SYNCOPE AND COLLAPSE Pt. C/o syncopal episodes with dizziness and blurred vision x 2-3 months. COMPARISON: No exams were available for comparison TECHNIQUE: Routine multiplanar multi echo sequences are performed without and with gadolinium enhancement. 17 ml prohance used lot #[id number] EXP 06/2022 FINDINGS: No midline shift, mass effect, intracranial hemorrhage, or hydrocephalus is evident. There is moderate generalized atrophy with periventricular T2 white matter hyperintensities consistent with ischemic gliotic change from microvascular disease. The cerebellopontine angle and brainstem have an unremarkable appearance. There is a small curvilinear area of increased FLAIR signal in the right and inferior aspect of the cerebellum. This area does not demonstrate contrast enhancement and does not show restricted diffusion and may be due to an area of gliotic change. The pituitary, optic chiasm, and craniocervical junction have an unremarkable appearance. There is moderate thinning of the corpus callosum. No mastoid effusion or sinus air-fluid level. IMPRESSION: 1. Moderate atrophy with mild periventricular ischemic gliotic change. 2. Small curvilinear area of increased T2/FLAIR signal in the inferior and right aspect of the cerebellum. This does not demonstrate restricted diffusion and therefore does not appear to represent an acute area of infarction and does. This does not contrast enhancement as 1 would expect for metastatic lesion. This could be due to an area of ischemic gliotic change.. Consider 3 month follow-up to confirm stability. Dictated by: David Lockhart MD 03/11/2020 08:34 David Lockhart MD in [place] 03/11/2020 08:34
== END ==
PROVIDERS: PCP Family Medicine; Visit Provider Family Medicine
DX: R55 Syncope and collapse (principal)
CPT/HCPCS: 36415; 70553; 82565; 84520; 93880; A9576

== ENCOUNTER → 2020-03-11 08:55 | Outpatient (CLI) | payer MEDICARE, MEDICAID, SELFPAY ==
[2020-03-11 09:19] LABS: Basophils % 0.5 % (0.1-2.0); Eosinophils % 0.3 % (0.1-12.0); Lymphocytes # 1.2 K/mm3 (0.7-4.5); Lymphocytes % 17.1 % (10-50); Mean Corpuscular HGB Conc 34.3 g/dL (31.8-35.4); Mean Corpuscular Hemoglobin 37.3 pg (27.0-31.2); Mean Corpuscular Volume 108.9 fl (80-94); Mean Platelet Volume 8.1 fl (7.4-10.4); Monocytes # 0.3 K/mm3 (0.1-1.0); Monocytes % 4.7 % (1.7-9.3); Neutrophils # 5.2 K/mm3 (1.8-7.8); Neutrophils % 77.4 % (37.0-80.0); Platelet Count 218 K/mm3 (142-424); Red Blood Count 3.49 M/mm3 (4.60-6.20); Red Cell Distribution Width 16.8 % (11.5-17.5); White Blood Count 6.7 K/mm3 (4.8-10.8)
[2020-03-11 10:49] LABS: Alanine Aminotransferase 67 U/L (12-78); Albumin Level 3.8 g/dl (3.5-5.0); Albumin/Globulin Ratio 1.5 (1.1-1.8); Alkaline Phosphatase 82 U/L (38-126); Anion Gap 14.7 mEq/L (5-15); Aspartate Amino Transferase 59 U/L (17-59); Blood Urea Nitrogen 10 mg/dl (9-20); Calcium 9.2 mg/dl (8.4-10.2); Carbon Dioxide 27 mmol/L (22.0-30.0); Chloride 97 mmol/L (98-107); Estimated Glomerular Filt Rate 98 ml/min (>60); GFR (African American) 118 ML/MIN (>60); Globulin 2.6 g/dL (1.3-3.2); Glucose 179 mg/dl (74-100); Potassium 3.7 mmoL/L (3.5-5.1); Sodium 135 mmol/L (136-145); Total Protein,Serum 6.4 g/dl (6.3-8.2)
[2020-03-11 10:51] LABS: Ammonia < 9 umol/L (9-30)
[2020-03-11 11:19] LABS: Thyroid Stimulating Hormone 1.68 uIU/mL (0.465-4.68)
[2020-03-11 11:54] LABS: Folate 9.23 ng/mL; Vitamin B12 363 pg/mL
[2020-03-17 06:39] LABS: Vitamin B1 71.4 nmol/L (66.5-200.0)
== END ==
PROVIDERS: Visit Provider Nurse Practitioner Family
DX: R00.0 Tachycardia, unspecified (principal); R42 Dizziness and giddiness; R55 Syncope and collapse; Z72.89 Other problems related to lifestyle
CPT/HCPCS: 36415; 80053; 82140; 82607; 82746; 84425; 84443; 85025

== ENCOUNTER 2020-05-13 00:09 | Observation (INO) | payer MEDICARE, MEDICAID, SELFPAY ==
[2020-05-13] VITALS (27 sets, daily range): BP systolic 99–130; BP diastolic 59–82; PULSE 70–110; RESP 14–20; TEMP 36.7–37.1; O2SAT 95–100; BMI 25.0; BMI 24.1
--- NOTE | 2020-05-13 | IR_ITS ---
APPROVED REPORT Patient Location: Inpatient Board Machine Set Up Operator: MELODY Blankenship RT (R) PROCEDURES Left heart catheterization Left ventriculogram Selective coronary angiogram INDICATION Syncope, Factors for coronary artery disease Informed consent was obtained prior to the procedure. COMPLICATIONS None Estimated Blood Loss: less than 10ml TECHNIQUE One percent lidocaine used to anesthetize the right anterior aspect of the wrist. The right radial artery was accessed via the Seldinger technique. A 6 [place] sheath was placed in the right radial artery. 2.5 mg of verapamil, 800 mcg of nitroglycerin, 1mg Lidocaine and 5000 U Heparin were given through the arterial sheath. The trap catheter was also used to perform left heart catheterization, left ventriculogram and selective coronary angiogram. At the end of the procedure the sheath was removed good hemostasis was achieved using Traclet band, patient was transferred to the postop holding area in stable condition. ANGIOGRAPHIC RESULTS The left main artery Normal The left anterior descending artery Normal The circumflex artery Normal The right coronary artery Dominant normal The MCARTHUR ventriculogram reveals Normal 65% The left ventricular end-diastolic pressure 10 mmHg IMPRESSION Normal coronary arteries Normal ejection fraction Normal left ventricular end-diastolic pressure PLAN 1. Evaluation of noncardiac symptomatology Electronically signed by : Jason Panchal, 05/13/2020 11:15:06
--- NOTE | 2020-05-13 00:32 | CT_ITS ---
PROCEDURE: CT HEAD/BRAIN WO CON CLINICAL INDICATION: Syncope Syncope the, recent falls, fall with injury and pain COMPARISON: CT HDWO CT HEAD W/O CONTRAST from 12/16/2016 TECHNIQUE: Axial images obtained. All CT scans at the facility use one or more dose reduction, viz: automated exposure control, ma/kV adjustment per patient size (including targeted exams where dose is matched to indication, i.e. head), or iterative reconstruction technique. FINDINGS: No midline shift, mass effect, intracranial hemorrhage, hydrocephalus, or extra-axial fluid collection is evident. There is generalized atrophy with hypoattenuation of the periventricular white matter consistent with microangiopathic changes. The calvarium has an unremarkable appearance. No mastoid effusion. Mild mucosal thickening involves the right maxillary sinus. IMPRESSION: No acute intracranial finding Dictated by: David Lockhart MD 05/13/2020 05:34 David Lockhart MD in [facility] 05/13/2020 05:34
--- NOTE | 2020-05-13 00:32 | CT_ITS ---
PROCEDURE: CT CERVICAL SPINE WO CON CLINICAL INDICATION: Syncope Injury with pain, recent falls COMPARISON: CT [facility] CT CERVICAL SPINE W/O CONT from 12/16/2016 TECHNIQUE: Axial images obtained with sagittal and coronal reformats. All CT scans at the facility use one or more dose reduction, viz: automated exposure control, ma/kV adjustment per patient size (including targeted exams where dose is matched to indication, i.e. head), or iterative reconstruction technique. Axial spiral CT scanning performed of the cervical spine beginning at the base of the skull and continuing to the upper T-spine. 3-D multiplanar reconstruction with 3-D manipulation of volumetric data set in image rendering was completed by the radiologist and/or technologist with the supervision of the radiologist on independent workstation. FINDINGS: Normal alignment. No fracture or dislocation. There is multiple you level cervical spondylosis with degenerative disc disease C2-C3, degenerative disc disease with endplate spurring and canal stenosis with bilateral foraminal narrowing at C3-C4, degenerative disc disease with endplate spurring bulging disc bilateral foraminal and lateral recess narrowing and canal stenosis at C4-C5, degenerative disc disease with endplate spurring with partially calcified bulging disc with severe canal stenosis of 7 mm with bilateral lateral recess and foraminal narrowing at C5-C6, degenerative disc disease with endplate spurring with a right paracentral/foraminal disc osteophyte complex with severe right lateral recess and foraminal narrowing and canal stenosis at C6-C7. Lung apices are clear. IMPRESSION: 1. No acute fracture. 2. Multilevel cervical spondylosis with canal stenosis lateral recess and foraminal narrowing. Please see above for detailed description. Probably overall not significantly changed. Dictated by: David Lockhart MD 05/13/2020 05:41 David Lockhatr MD in [place] 05/13/2020 05:41
--- NOTE | 2020-05-13 00:32 | XR_ITS ---
PROCEDURE: XR CHEST AP CLINICAL HISTORY: syncope COMPARISON: CR CXR CHEST(2 VIEWS-NOT PORTABLE) from 07/25/2014 CR CXR CHEST(2 VIEWS-NOT PORTABLE) from 12/16/2016 CR XR CHEST 2V from 10/08/2019 FINDINGS: The cardiomediastinal silhouette and pulmonary vascularity are within normal limits. The lungs are clear without infiltrates, suspicious nodules, or pleural effusions. No acute bony abnormalities. IMPRESSION: No acute findings. Dictated by: David Lockhart MD 05/13/2020 05:25 David Lockhart MD in [place] 05/13/2020 05:25
--- NOTE | 2020-05-13 00:32 | XR_ITS ---
PROCEDURE: XR PELVIS 1-2V CLINICAL INDICATION: Syncope Pain, fall with injury and pain COMPARISON: No exams were available for comparison TECHNIQUE: XR Pelvis AP View FINDINGS: No fracture or dislocation is evident. No significant degenerative change. No lytic or blastic change. IMPRESSION: No acute findings. Dictated by: David Lockhart MD 05/13/2020 05:30 David Lockhart MD in [place] 05/13/2020 05:30
--- NOTE | 2020-05-13 00:41 | HMH.EDSYNC ---
ED Disposition Clinical Impression: Syncope Qualifiers: Syncope type: unspecified Qualified Code(s): R55 - Syncope and collapse Diabetes mellitus Qualifiers: Diabetes mellitus type: type 2 Diabetes mellitus termite exterminator helper insulin use: unspecified longterm insulin use status Diabetes mellitus complication status: with other specified complication Qualified Code(s): E11.69 - Type 2 diabetes mellitus with other specified complication Alcohol intoxication Qualifiers: Complication of substance-induced condition: with unspecified complication Qualified Code(s): F10.929 - Alcohol use, unspecified with intoxication, unspecified Disposition: Admitted As Inpatient Condition on Discharge: Fair Instructions: DI for Syncope in Adults (Fainting), DI for Syncope in Children (Fainting) Referrals: Provider,Referral, [Referring] - - Critical Care Critical Care Time: No Attestation: On 05/13/20, the high probability of a clinically significant, sudden or life threatening deterioration of the following system(s) required my full and direct attention, intervention and personal management. The time I documented below is in addition to time spent performing reported procedures but includes the following listed in this critical care notation. Medical Decision Making - Medical Records Medical records reviewed: Yes: I reviewed the patient's medical records. - Carlos Inquiry Pt receiving controlled substance: No Vital Signs: 05/13/20 00:13 Temperature 98.5 F Temperature Source Oral Pulse Rate [Right] 77 Respiratory Rate 16 Blood Pressure [Right Arm] 127/82 Blood Pressure Mean [Right Arm] 97 Blood Pressure Source [Right Arm] Automatic Cuff Blood Pressure Position [Right Arm] Supine 02 Sat by Pulse Oximetry 98 Oxygen Delivery Method Room Air - Lab Data Lab results reviewed: Yes: I reviewed the patient's lab results. Lab Results 05/13/20 00:12: WBC 10.4, RBC 3.96 L, Hgb 13.9 L, Hct 41.0 L, MCV 103.5 H, MCH 35.1 H, MCHC 33.9, RDW 14.8, Plt Count 242, MPV 8.5, Neut % (Auto) 67.2, Lymph % (Auto) 27.2, [place] % (Auto) 5.3, Eos % (Auto) 0.0 L, Baso % (Auto) 0.3, Neut # (Auto) 7.0, Lymph # (Auto) 2.8, [place] # (Auto) 0.6, Eos # (Auto) 0.0, Baso # (Auto) 0.0 05/13/20 00:12: Sodium 131 L, Potassium 3.7, Chloride 92 L, Carbon Dioxide 25, Anion Gap 17.7 H, BUN 9, Creatinine 0.80, Estimated Creat Clear 90, Estimated GFR 98, Est GFR ( Amer) 118, Glucose 548 H*, Calcium 9.6, Total Bilirubin 1.6 H, AST 60 H, ALT 95 H, Alkaline Phosphatase 133 H, Troponin I 0.02, Total Protein 7.1, Albumin 4.3, Globulin 2.8, Albumin/Globulin Ratio 1.5 05/13/20 00:12: Plasma/Serum Alcohol 169 H 05/13/20 00:12: SARS-CoV-2 IgG Ab (Rapid) Negative, SARS-CoV-2 IgM Ab (Rapid) Negative 05/13/20 00:12: NT-Pro-B Natriuret Pep 504 H 05/13/20 00:12: Hemoglobin A1c 10.9 H 05/13/20 00:12: Acetone Level None detected 05/13/20 00:12: PT 10.4, INR 0.93 05/13/20 00:35: Urine Color Yellow, Urine Appearance Clear, Urine pH 6.5, Ur Specific [place] <= 1.005, Urine Protein Negative, Urine Glucose (UA) 3+, Urine Ketones Negative, Urine Blood Trace-l, Urine Nitrate Negative, Urine Bilirubin Negative, Urine Urobilinogen 0.2, Ur Leukocyte Esterase Negative, Urine WBC Occasional, Ur Squamous Epith Cells 3-5, Urine Bacteria Trace 05/13/20 00:35: Urine Opiates Screen Negative, Urine Methadone Screen Negative, Ur Barbituates Screen Negative, Ur Phencyclidine Scrn Negative, Ur Amphetamines Screen Negative, U Benzodiazepines Scrn Negative, Urine Cocaine Screen Negative, U Marijuana (THC) Screen Positive H 05/13/20 01:11: Ammonia < 9 L Result diagrams: 05/13/20 00:12 05/13/20 00:12 Orders (Tests/Meds): ED MEDICATIONS Generic Name Dose Route Start Last Admin Trade Name Freq PRN Reason Stop Dose Admin Sodium Chloride 1,000 mls @ 999 mls/hr 05/13/20 00:45 05/13/20 01:09 Sod Chlor 0.9% 1000ml Bag IV 05/13/20 01:45 999 mls/hr .[id number] OSIRIS Administration Discontinued Medications
[2020-05-13 00:42] LABS: Basophils % 0.3 % (0.1-2.0); Hemoglobin 13.9 g/dL (14.1-18.0); Lymphocytes # 2.8 K/mm3 (0.7-4.5); Lymphocytes % 27.2 % (10-50); Mean Corpuscular HGB Conc 33.9 g/dL (31.8-35.4); Mean Corpuscular Hemoglobin 35.1 pg (27.0-31.2); Mean Corpuscular Volume 103.5 fl (80-94); Mean Platelet Volume 8.5 fl (7.4-10.4); Monocytes # 0.6 K/mm3 (0.1-1.0); Monocytes % 5.3 % (1.7-9.3); Neutrophils % 67.2 % (37.0-80.0); Platelet Count 242 K/mm3 (142-424); Red Blood Count 3.96 M/mm3 (4.60-6.20); Red Cell Distribution Width 14.8 % (11.5-17.5); White Blood Count 10.4 K/mm3 (4.8-10.8)
[2020-05-13 00:47] LABS: Ethyl Alcohol 169 mg/dl (0-10)
[2020-05-13 00:49] LABS: Alanine Aminotransferase 95 U/L (12-78); Albumin Level 4.3 g/dl (3.5-5.0); Albumin/Globulin Ratio 1.5 (1.1-1.8); Alkaline Phosphatase 133 U/L (38-126); Anion Gap 17.7 mEq/L (5-15); Aspartate Amino Transferase 60 U/L (17-59); Bilirubin,Total 1.6 mg/dl (0.2-1.3); Blood Urea Nitrogen 9 mg/dl (9-20); Calcium 9.6 mg/dl (8.4-10.2); Carbon Dioxide 25 mmol/L (22.0-30.0); Chloride 92 mmol/L (98-107); Creatinine Clearance Estimated 90 mL/min (50-200); Estimated Glomerular Filt Rate 98 ml/min (>60); GFR (African American) 118 ML/MIN (>60); Globulin 2.8 g/dL (1.3-3.2); Potassium 3.7 mmoL/L (3.5-5.1); Sodium 131 mmol/L (136-145); Total Protein,Serum 7.1 g/dl (6.3-8.2)
[2020-05-13 00:53] LABS: Microscopic, Urine URINE MICROSCOPIC (MICROSCOPIC)
[2020-05-13 00:59] LABS: Appearance,Urine CLEAR (Clear); Bilirubin,Urine Negative (Negative); Blood, Urine TRACE-L (Negative); Color,Urine YELLOW (Yellow); Glucose,Urine (UA) 3+ (Negative); Ketones,Urine Negative (Negative); Leukocyte Esterase,Urine Negative (Negative); Nitrate,Urine Negative (Negative); PH,Urine 6.5 (5.0-8.5); Protein,Urine Negative (Negative); Specific Gravity, Urine <= 1.005 (1.005-1.030); Urobilinogen,Urine 0.2 EU/dl (0.2)
[2020-05-13 01:00] LABS: Troponin I 0.02 ng/ml (0.00-0.034)
[2020-05-13 01:04] LABS: Glucose 548 mg/dl (74-100)
[2020-05-13 01:14] LABS: Bacteria,Urine Trace /lpf; WBC,Urine Occasional #/hpf (0-3)
[2020-05-13 01:14] LABS: NT Pro Brain Natriuretic Pep. 504 pg/mL (0-125)
[2020-05-13 01:19] LABS: Coronavirus 19 IgG Antibody Negative (Negative); Coronavirus 19 IgM Antibody Negative (Negative)
[2020-05-13 01:28] LABS: INR 0.93 (0.9-1.1); Prothrombin Time 10.4 seconds (9.4-11.8)
[2020-05-13 01:40] LABS: Acetone, Serum (Rapid) None Detected (None Detect)
[2020-05-13 01:46] LABS: Ammonia < 9 umol/L (9-30)
[2020-05-13 01:54] LABS: Amphetamine/Metha Screen,Urine Negative ng/ml (<1000); Benzodiazepines Screen,Urine Negative ng/ml (<200)
[2020-05-13 01:55] LABS: Barbiturates Screen,Urine Negative ng/ml (<200); Cannabinoid Screen,Urine Positive ng/ml (<50)
[2020-05-13 01:56] LABS: Cocaine Screen,Urine Negative ng/ml (<300)
[2020-05-13 01:57] LABS: Methadone Screen,Urine Negative ng/ml (<300); Opiate Screen,Urine Negative ng/ml (<300)
[2020-05-13 01:58] LABS: Phencyclidine Screen,Urine Negative ng/ml (<25)
[2020-05-13 02:00] LABS: Hemoglobin A1C 10.9 % (4.0-6.0)
--- NOTE | 2020-05-13 02:36 | PC.NURSE ---
multiple Skin tears to right shoulder and forearm, left shoulder and forearm cleaned with Hibiclenz and sterile saline; non-stick pads placed over and wrapped in kerlex.
--- NOTE | 2020-05-13 02:56 | PC.NURSE ---
patient up to floor via wheelchair.
--- NOTE | 2020-05-13 03:39 | PC.NURSE ---
all wounds from previous fall prior to admission left shoulder approx. 3cm diameter left forearm proximal to elbow 0.5cmx 0.5cm and distal elbow 6cm x 3cm left forearm proximal to wrist 2cm x1cm and distal to wrist 1cm x 2cm right forearm 3cmx 1cm
--- NOTE | 2020-05-13 04:05 | PC.NURSE ---
new admission. wound pictures added to chart. pt remains inebriated at this shift, but is pleasant. clip alarm in place. advised several times to use call light for help, pt verbalized understanding. call light within easy reach.
[2020-05-13 04:19] LABS: Troponin I 0.02 ng/ml (0.00-0.034)
[2020-05-13 07:30] LABS: Chloride 100 mmol/L (98-107)
[2020-05-13 07:31] LABS: Sodium 137 mmol/L (136-145)
--- NOTE | 2020-05-13 07:32 | HMH.PHAVTE ---
[facility] Pharmacy VTE Monitoring - Patient Demographics Admission date: 05/13/20 Report Date: 05/13/20 Time: 07:32 Allergies/Adverse Reactions: Patient Allergies No Known Allergies Allergy (Verified 04/12/20 09:10) Height: 1.83 m Weight: 80.739 kg Patient Problems: Current Active Problems Syncope (Acute) Diabetes mellitus (Acute) Alcohol intoxication (Acute) - VTE Risk Labs: VTE Related Lab Results Hgb 13.9 g/dL (14.1-18.0) L 05/13/20 00:12 Hct 41.0 % (42.0-52.0) L 05/13/20 00:12 Plt Count 242 K/mm3 (142-424) 05/13/20 00:12 PT 10.4 seconds (9.4-11.8) 05/13/20 00:12 INR 0.93 (0.9-1.1) 05/13/20 00:12 BUN 9 mg/dl (9-20) 05/13/20 00:12 Creatinine 0.80 mg/dl (0.66-1.25) 05/13/20 00:12 Estimated Creat Clear 90 mL/min (50-200) 05/13/20 00:12 Was VTE Risk Assessment Performed: Yes - Prophylaxis VTE Prophylaxis Ordered?: Yes Types of VTE Prophylaxis: TEDS Knee High Location of Applied Device: Bilateral Lower Extremeties
[2020-05-13 07:33] LABS: Blood Urea Nitrogen 6 mg/dl (9-20); Carbon Dioxide 32 mmol/L (22.0-30.0); Creatinine Clearance Estimated 86 mL/min (50-200); Estimated Glomerular Filt Rate 114 ml/min (>60); GFR (African American) 138 ML/MIN (>60)
--- NOTE | 2020-05-13 07:33 | HMH.PHAINT ---
MEDICATION RECONCILIATION COMPLETED ON PATIENT USING EXTERNAL FILL HISTORY FROM PHARMACY. -TA[place] FREEMAN, MAXIMINOD
[2020-05-13 07:34] LABS: Calcium 8.7 mg/dl (8.4-10.2); Cholesterol 125 mg/dl (140-200); Glucose 259 mg/dl (74-100); HDL Cholesterol 63 mg/dl (40-60); Magnesium 1.7 mg/dl (1.6-2.3); Triglycerides 99 mg/dl (30-150); VLDL Cholesterol 20 mg/dL (0-40)
[2020-05-13 07:44] LABS: Direct LDL Cholesterol 35.99 mg/dL (100-129)
[2020-05-13 07:46] LABS: Troponin I 0.02 ng/ml (0.00-0.034)
--- NOTE | 2020-05-13 08:00 | CA_ITS ---
APPROVED REPORT EXAM: Comprehensive 2D, Doppler, and color-flow Echocardiogram Medical Office Specialist: Yumiko Hernandez RDCS Ht: 6 ft 0 in Wt: 185lbs BSA: 2.06 BP: 127/82 mmHg Indications: syncope murmur HTN DM HLP 2D Dimensions LVDd 2.00 cm M: 4.2 - 5.9 Aortic Root 3.80 cm M: 3.1 - 3.7 Left Atrium 3.00 cm M: 3.0 - 4.0 M-Mode Dimensions RVDd 2.25 cm (0.9-2.6) LVDd 4.59 cm (3.5-5.7) LVDs 2.72 cm (3.5-5.7) IVSd 0.89 cm (0.6-1.1) PWd 0.97 cm (0.6-1.1) EF (Teich) 71.60% FS 40.70% EDV (Teich) 96.80 mL ESV (Teich) 27.50 mL LV Diastology E Decel Time 190.00 (160-240 msec) E/A Ratio 0.7 MED E' 6.80 (< 7 cm/sec) E'/MED E' Ratio 7.87 (>14) LAT E' 9.10 (<10 cm/sec) E/LAT E' Ratio 5.88 (>14) Mitral Valve MV E Max Nabil. 54.00 (40-130 cm/s) MV A Velocity 82.00 (40-130 cm/s) E/A Ratio 0.65 MV Decel. Time 190.00 (160-240 ms) MV PHT 56.00 ms Left Ventricle Left atrium is mildly enlarged, left ventricle is normal size, mild concentric left ventricular hypertrophy, visually estimated ejection fraction 55% with no regional wall motion abnormality. Grade 1 diastolic dysfunction seen without tissue Doppler evidence of raise left atrial pressure. Right Ventricle Right atrium and right ventricle are normal size and contractility. Aortic Valve Aortic valve is minimally thickened and fibrosed, there is no aortic stenosis or aortic insufficiency. Mitral Valve Mitral valve leaflets are minimally thickened, there is no mitral stenosis, there is mild mitral regurgitation. Tricuspid Valve Tricuspid valve is grossly normal, there is mild tricuspid regurgitation, tricuspid regurgitation jet velocity is inadequate for calculation of the right ventricular systolic pressure. Pulmonic Valve Pulmonic valve is poorly visualized. Great Vessels Aortic root is normal size. Pericardium Small pericardial effusion noted. Conclusion 1. Mild biatrial enlargement, normal left ventricular size, mild concentric left ventricular hypertrophy, visually estimated ejection fraction 55% with no regional wall motion abnormality, grade 1 diastolic dysfunction seen without tissue Doppler evidence of raise left atrial pressure. 2. Mild mitral and tricuspid regurgitation. 3. Small pericardial effusion noted. Electronically signed by : Efraín Moreira, 05/13/2020 10:17:32
--- NOTE | 2020-05-13 08:00 | HMH.CNCARD ---
History of Present Illness Consult date: 05/13/20 Chief complaint: Passed out Additional Medical History:: 1. Hypertension A. Echocardiogram, 09/2019, hyperdynamic EF greater than 65% with mild MR. Technically difficult study. 2. Hyperlipidemia 3. History of hepatitis C status post medical therapy for treatment and years ago 4. History of endocarditis after infected teeth pulled approximately 6 years ago 5. Recurrent syncope of unknown etiology A. Brain MRI, 02/2020,1. Moderate atrophy with mild periventricular ischemic gliotic change. 2. Small curvilinear area of increased T2/FLAIR signal in the inferior and right aspect of the cerebellum. This does not demonstrate restricted diffusion and therefore does not appear to represent an acute area of infarction and does. This does not contrast enhancement as 1 would expect for metastatic lesion. This could be due to an area of ischemic gliotic change.. Consider 3 month follow-up to confirm stability B. EEG, 03/2020, within normal limits C. C-spine CT, 05/13/2020, 1. No acute fracture. 2. Multilevel cervical spondylosis with canal stenosis lateral recess and foraminal narrowing. Please see above for detailed description. Probably overall not significantly changed D. CT of the head, 05/13/2020,No midline shift, mass effect, intracranial hemorrhage, hydrocephalus, or extra-axial fluid collection is evident. There is generalized atrophy with hypoattenuation of the periventricular white matter consistent with microangiopathic changes. The calvarium has an unremarkable appearance. No mastoid effusion. Mild mucosal thickening involves the right maxillary sinus 6. New diagnosed diabetes mellitus, 05/13/2020 with hemoglobin A1c of 10.9 and glucose greater than 500 [facility] History Medical History: Reports:: Diabetes Mellitus Type 2, Hepatitis (Hep C), Hyperlipidemia, Hypertension, Kidney Stones, Renal Disease Denies:: Diabetes Mellitus Type 1, Internal Pacemaker, Lung Disease, Seizures *Have you ever received a pneumonia vaccine?: Yes *Have you received a flu vaccine this season?: Yes Other Medical History: Reports: Liver Disease (Hep c), Other Other Surgeries: Yes: Colonoscopy. No: Pacemaker Amputation: No Fractures: No - *Social History Smoking Status: Former smoker Alcohol Intake: current Alcohol Intake Frequency:: 3 or more drinks per day Substance Use Type: marijuana *Occupational Status:: disabled Housing: house Household Members: none *Travel in the last 8 weeks: None Family Hx:: Cancer, Stroke Meds Home Medications Medication Instructions Recorded Confirmed Type Atorvastatin Calcium [Lipitor 10mg 10 mg PO HS 03/27/18 05/13/20 History Tab] Omeprazole 20 mg PO DAILY 10/08/19 05/13/20 History potassium chloride 20 mEq 20 meq PO BID tab 03/11/20 05/13/20 History tablet,extended release(part/cryst) prednisone 5 mg tablet 5 mg PO DAILY tab 03/11/20 05/13/20 History bisoprolol fumarate 5 mg tablet 5 mg PO DAILY 04/12/20 05/13/20 History furosemide 20 mg tablet 20 mg PO BID 04/12/20 05/13/20 History Budesonide [Budesonide EC] 9 mg PO DAILY 05/13/20 05/13/20 History Metoprolol Succinate [Metoprolol 25 mg PO DAILY 05/13/20 05/13/20 History Succinate 25mg Tablet*] Allergies Allergy/AdvReac Type Severity Reaction Status Date / Time No Known Allergies Allergy Verified 04/12/20 09:10 Exam Vital signs and Labs for Last 24 Hours: Temp Pulse Resp BP Pulse Ox 98.4 F 78 20 129/68 100 05/13/20 07:45 05/13/20 07:45 05/13/20 07:45 05/13/20 07:45 05/13/20 07:45 Laboratory Results - last 24 hr 05/13/20 00:12: WBC 10.4, RBC 3.96 L, Hgb 13.9 L, Hct 41.0 L, MCV 103.5 H, MCH 35.1 H, MCHC 33.9, RDW 14.8, Plt Count 242, MPV 8.5, Neut % (Auto) 67.2, Lymph % (Auto) 27.2, [place] % (Auto) 5.3, Eos % (Auto) 0.0 L, Baso % (Auto) 0.3, Neut # (Auto) 7.0, Lymph # (Auto) 2.8, [place] # (Auto) 0.6, Eos # (Auto) 0.0, Baso # (Auto) 0.0 05/13/20 00:12: [place]
--- NOTE | 2020-05-13 08:08 | HMH.CNCARD ---
History of Present Illness Consult date: 05/13/20 Chief complaint: passed out Additional Medical History:: 1. Hypertension A. Echocardiogram, 09/2019, hypertensive heart disease with EF greater than 65%. Technically difficult study. Mild MR. 2. Hyperlipidemia 3. Newly diagnosed diabetes mellitus with hemoglobin A1c of 10.9, 05/13/2020 4. History of cirrhosis of the liver status post treatment in the past 5. Recurrent syncope A. Holter monitor 12/2019, PACs noted no high-grade arrhythmias. B. EEG, 03/2020, within normal limits C. Brain MRI, 03/2020, 1. Moderate atrophy with mild periventricular ischemic gliotic change. 2. Small curvilinear area of increased T2/FLAIR signal in the inferior and right aspect of the cerebellum. This does not demonstrate restricted diffusion and therefore does not appear to represent an acute area of infarction and does. This does not contrast enhancement as 1 would expect for metastatic lesion. This could be due to an area of ischemic gliotic change.. Consider 3 month follow-up to confirm stability D. Head CT, 05/13/2020, No midline shift, mass effect, intracranial hemorrhage, hydrocephalus, or extra-axial fluid collection is evident. There is generalized atrophy with hypoattenuation of the periventricular white matter consistent with microangiopathic changes. The calvarium has an unremarkable appearance. No mastoid effusion. Mild mucosal thickening involves the right maxillary sinus. 6. History of endocarditis status post infected teeth removal, approximately 2013 History of present illness: 65-year-old white male with history as noted above presented to the emergency department for episode of passing out. Patient states he got up from his chair and reportedly was walking into the kitchen to get some ice cream when the next thing he remembers is waking up on the floor. He denies any chest pain, pressure, tightness, vomiting, diarrhea or palpitations prior to the syncopal episode. He lay on the floor for about an hour and a half before being able to get to his cell phone and call 911. Patient denies any loss of bowel or bladder control. He has been experiencing episodes of passing out off and on over the last 9 months and has been going to Dr. Mendieta as well as seeing cardiology for evaluation. Patient was seen by Dr. CHAIDEZ recently with plans for LIZZETTE to evaluate history of infected heart valve and stress testing due to recurrent syncope. Neither of those tests have been performed at this time. Patient is in no acute distress this morning. Troponins are normal but patient is newly diagnosed as diabetic with a hemoglobin A1c of 10.9. EKG is sinus rhythm with no acute ST segment changes. BNP elevated at just over 500 but chest x-ray shows no evidence of CHF. Cardiology consulted for evaluation and recommendations. Patient does relate an episode of diarrhea 2 days ago but no recurrence after the 1 episode. Patient's alcohol level was 169 and his drug screen positive for marijuana. [facility] History Medical History: Reports:: Diabetes Mellitus Type 2, Hepatitis (Hep C), Hyperlipidemia, Hypertension, Kidney Stones, Renal Disease Denies:: Diabetes Mellitus Type 1, Internal Pacemaker, Lung Disease, Seizures *Have you ever received a pneumonia vaccine?: Yes *Have you received a flu vaccine this season?: Yes Other Medical History: Reports: Liver Disease (Hep c), Other Other Surgeries: Yes: Colonoscopy. No: Pacemaker Amputation: No Fractures: No - *Social History Smoking Status: Former smoker Alcohol Intake: current Alcohol Intake Frequency:: 3 or more drinks per day Substance Use Type: marijuana *Occupational Status:: disabled Housing: house Household Members: none *Travel in the last 8 weeks: None Family Hx:: Cancer, Stroke Meds Home Medications Medication Instructions Recorded Confirmed Type Atorvastatin Calcium [Lipitor 10mg 10 mg PO HS 03/27/18 05/13/20 History Tab] Omeprazole 20 mg
[2020-05-13 08:29] LABS: Basophils % 0.1 % (0.1-2.0); Eosinophils % 0.1 % (0.1-12.0); Hematocrit 35.5 % (42.0-52.0); Lymphocytes % 31.1 % (10-50); Mean Corpuscular HGB Conc 33.4 g/dL (31.8-35.4); Mean Corpuscular Hemoglobin 34.5 pg (27.0-31.2); Mean Corpuscular Volume 103.2 fl (80-94); Mean Platelet Volume 8.5 fl (7.4-10.4); Monocytes # 0.3 K/mm3 (0.1-1.0); Neutrophils # 4.1 K/mm3 (1.8-7.8); Neutrophils % 63.6 % (37.0-80.0); Platelet Count 176 K/mm3 (142-424); Red Blood Count 3.44 M/mm3 (4.60-6.20); Red Cell Distribution Width 14.6 % (11.5-17.5); White Blood Count 6.5 K/mm3 (4.8-10.8)
--- NOTE | 2020-05-13 08:29 | ECG_ITS ---
APPROVED REPORT Exam: Resting ECG HR:74 bpm ECG Measurements Heart Rate 74 AXES TN 146 P 42 QRSd 80 QRS 36 QT 410 T -78 QTc 455 Conclusion Normal sinus rhythm T wave abnormality, consider anterior ischemia Abnormal ECG Electronically signed by : Bruce Obando, 05/13/2020 05:34:41
[2020-05-13 08:49] LABS: Hemoglobin 11.9 g/dL (14.1-18.0)
--- NOTE | 2020-05-13 09:04 | HMH.HP ---
*Admission Date: 05/13/20 *Chief complaint: Syncope, New Onset Diabetes *History of present illness: Mr. Lala is a 65yo male with a history of HTN, HLP, BPH, GERD, liver cirrhosis, Hepatitis C with 16wks of Zepatier treatment, and chronic low back pain for which he is disabled. He has been seeing Dr. Friend in the office of A for recent syncopal episodes and has had workup by cardiology and neurology including carotid doppler studies, Holter monitor, brain MRI, EEG, and nuclear stress test which have all been unremarkable for the cause of his syncope. He denies any preceeding symptoms such as SOB, dizziness, palpitations, or vision changes. He does admit to some generalized weakness and confusion during the period where he comes to and finds himself on the floor. He states that he has been passing out and falling almost every day until the past week when he had a period of 4 or 5 days during which he did not fall. The fall-free period ended yesterday afternoon when his sister and brother came to check on him and found him down at home. They helped him get up and ensured he was not injured. He reports later yesterday evening he again woke up on the floor and called EMS for assistance at which point he was transported to [facility] ED for further evaluation. Upon arrival, his serum alcohol level was elevated and blood glucose was 548 with subsequent A1C at 10.9. His acetone was negative. Liver enzymes were elevated and ammonia level was normal. His BNP was elevated at 504. Tox screen was positive for marijuana. CT of the head, CT of the cervical spine, Xray of the pelvis, and CXR were all without acute findings. He was admitted and cardiology was consulted. This morning, he is sitting up in bed without complaint. He denies any pain, chest pain, or shortness of breath. He reports having 2 or 3 beers yesterday and describes drinking few times per month but not more than once or twice per week. [facility] History Medical History: Reports:: BPH, Diabetes Mellitus Type 2, Gastroesophageal Reflux Disease(GERD), Hepatitis (Hep C), Hyperlipidemia, Hypertension, Kidney Stones, Renal Disease Denies:: Diabetes Mellitus Type 1, Internal Pacemaker, Lung Disease, Seizures *Have you ever received a pneumonia vaccine?: Yes *Have you received a flu vaccine this season?: Yes Other Medical History: Reports: Liver Disease (Hep c), Other Other Surgeries: Yes: Colonoscopy. No: Pacemaker Amputation: No Fractures: No - *Social History Smoking Status: Former smoker Alcohol Intake: current Alcohol Intake Frequency:: 3 or more drinks per day Substance Use Type: marijuana *Occupational Status:: disabled Housing: house Household Members: none *Travel in the last 8 weeks: None Family Hx:: Cancer, Stroke Review of Systems - Constitutional Reports weakness, Denies body ache(s), Denies chills, Denies fatigue, Denies fever(s), Denies headache(s) - Eyes Denies blurry vision, Denies change in vision, Denies loss of vision - ENT Denies dizziness, Denies facial pain, Denies headache(s), Denies nasal congestion, Denies nasal discharge, Denies pain with swallowing, Denies post nasal drip, Denies sinus pain, Denies sore throat - *Cardiovascular Reports leg swelling, Reports fainting, Denies chest pain, Denies chest pain at rest, Denies chest pain with activity, Denies leg pain with activity, Denies shortness of breath, Denies shortness of breath with activity, Denies lightheadedness, Denies rapid, pounding, or irregular heartbeat - *Respiratory Denies chest congestion, Denies cough, Denies shortness of breath, Denies shortness of breath with activity - *Gastrointestinal Reports loose stools, Denies abdominal pain, Denies change in bowel habits, Denies change in stools, Denies nausea, Denies vomiting - *Genitourinary Denies difficulty urinating, Denies painful urination, Denies decreased urination, Denies urinary frequency, Denies urinary urgency - *Musculoskeletal Reports muscle weakn
[2020-05-13 13:23] LABS: POC Glucose,Bedside 526 (70-110)
[2020-05-13 14:07] LABS: POC Glucose,Bedside 258 (70-110)
[2020-05-13 14:07] LABS: POC Glucose,Bedside 318 (70-110)
--- NOTE | 2020-05-13 15:08 | PC.NURSE ---
TRACELET OFF AT THIS TIME, TEGADERM ND TELFA IN PLACE, C/D/I, NO DRAINAGE/BLEEDING NOTED, VSS, WILL CONTINUE TO MONITOR.
[2020-05-13 16:44] LABS: POC Glucose,Bedside 253 (70-110)
--- NOTE | 2020-05-13 18:15 | PC.NURSE ---
HEART CATH THIS SHIFT, NO COMPLICATIONS SINCE RETURNING TO FLOOR, TRACELET OFF AT THIS TIME, TELFA AND TEGADERM DSG IN PLACE, NO BLEEDING OR DRAINAGE NOTED, PT DENIES SOA, DENIES PAIN, PT VSS, CURRENTLY ON RA WITH SATS WNL, PT FAMILY BROUGHT IN HOME MEDS, LOCKED IN MED DRAWER, DSG IN PLACE TO BUE RELATED TO MULTIPLE ABRASIONS FROM FALLS AT HOME, NO NEEDS AT THIS TIME, WILL CONTINUE TO MONITOR.
[2020-05-13 21:43] LABS: POC Glucose,Bedside 243 (70-110)
[2020-05-14] VITALS (15 sets, daily range): BP systolic 102–130; BP diastolic 64–86; PULSE 80–100; RESP 16–21; TEMP 36.4–37.1; O2SAT 90–97; BMI 24.3
--- NOTE | 2020-05-14 04:07 | PC.NURSE ---
Cath site to r wrist c/d/i. Pt. denies n/v/d, soa, cp, pain and dizziness. Dsgs c/d/i to lfa, errol and rfa.
[2020-05-14 05:25] LABS: POC Glucose,Bedside 206 (70-110)
[2020-05-14 06:28] LABS: Basophils % 0.3 % (0.1-2.0); Eosinophils % 0.2 % (0.1-12.0); Hematocrit 38.5 % (42.0-52.0); Hemoglobin 12.7 g/dL (14.1-18.0); Lymphocytes % 33.3 % (10-50); Mean Corpuscular HGB Conc 33.1 g/dL (31.8-35.4); Mean Corpuscular Hemoglobin 35.1 pg (27.0-31.2); Mean Corpuscular Volume 105.9 fl (80-94); Mean Platelet Volume 8.4 fl (7.4-10.4); Monocytes # 0.3 K/mm3 (0.1-1.0); Monocytes % 5.3 % (1.7-9.3); Neutrophils # 3.6 K/mm3 (1.8-7.8); Neutrophils % 60.9 % (37.0-80.0); Platelet Count 175 K/mm3 (142-424); Red Blood Count 3.64 M/mm3 (4.60-6.20); Red Cell Distribution Width 14.9 % (11.5-17.5)
[2020-05-14 06:37] LABS: Chloride 100 mmol/L (98-107); Sodium 138 mmol/L (136-145)
[2020-05-14 06:38] LABS: Potassium 3.3 mmoL/L (3.5-5.1)
[2020-05-14 06:40] LABS: Anion Gap 7.3 mEq/L (5-15); Blood Urea Nitrogen 10 mg/dl (9-20); Carbon Dioxide 34 mmol/L (22.0-30.0); Creatinine Clearance Estimated 87 mL/min (50-200); Estimated Glomerular Filt Rate 98 ml/min (>60); GFR (African American) 118 ML/MIN (>60)
[2020-05-14 06:41] LABS: Calcium 8.3 mg/dl (8.4-10.2); Glucose 203 mg/dl (74-100)
--- NOTE | 2020-05-14 09:21 | P.PN_ITS ---
Subjective Date: 05/14/20 Time: 09:21 Principal diagnosis: syncope Interval history: 65-year-old white male in bed in no acute distress. Denies any chest pain or discomfort overnight. No further episodes of syncope. Telemetry shows no significant arrhythmias. Discussed recommendation for implantable loop recorder with the patient and he agrees to proceed. Exam Vital signs and Labs for Last 24 Hours: Temp Pulse Resp BP Pulse Ox 97.6 F 80 18 113/68 90 L 05/14/20 04:00 05/14/20 04:00 05/14/20 04:00 05/14/20 04:00 05/14/20 04:00 Laboratory Results - last 24 hr 05/13/20 00:07: POC Glucose 526 H* 05/13/20 05:33: POC Glucose 318 H* 05/13/20 13:57: POC Glucose 258 H 05/13/20 16:33: POC Glucose 253 H 05/13/20 20:45: POC Glucose 243 H 05/14/20 05:17: POC Glucose 206 H 05/14/20 05:53: WBC 6.0, RBC 3.64 L, Hgb 12.7 L, Hct 38.5 L, MCV 105.9 H, MCH 35.1 H, MCHC 33.1, RDW 14.9, Plt Count 175, MPV 8.4, Neut % (Auto) 60.9, Lymph % (Auto) 33.3, [place] % (Auto) 5.3, Eos % (Auto) 0.2, Baso % (Auto) 0.3, Neut # (Auto) 3.6, Lymph # (Auto) 2.0, [place] # (Auto) 0.3, Eos # (Auto) 0.0, Baso # (Auto) 0.0 05/14/20 05:53: Sodium 138, Potassium 3.3 L, Chloride 100, Carbon Dioxide 34 H, Anion Gap 7.3, BUN 10 D, Creatinine 0.80, Estimated Creat Clear 87, Estimated GFR 98, Est GFR ( Amer) 118, Glucose 203 H D, Calcium 8.3 L I & O for Last 24 hours: Intake & Output 05/11/20 05/12/20 05/13/20 05/14/20 11:59 11:59 11:59 11:59 Intake Total 1000 / 1000 1234 / 1234 Output Total 600 / 600 850 / 850 Balance 400 / 400 384 / 384 Weight 178 lb 180 lb - Constitutional no acute distress - *Routine HEENT Exam Head: Present: normocephalic Eye: Present: EOMI, PERRL ENT: Present: mucous membranes moist - *Routine Neck Exam Present: supple. Absent: lymphadenopathy - *Routine Respiratory Exam Present: CTA bilaterally - *Routine Cardiovascular Exam Present: RRR - *Routine Abdominal Exam Present: soft, normoactive bowel sounds. Absent: tenderness - *Routine Extremities Exam Absent: cyanosis, clubbing, edema - *Routine Skin Exam Present: warm. Absent: rash - *Routine Neurological Exam Present: alert, oriented X3 Progress Note: A&P (1) Syncope Status: Acute (2) Diabetes mellitus Status: Acute (3) History of endocarditis Status: Chronic (4) History of hepatitis C Status: Chronic (5) Hyperlipidemia Status: Chronic (6) Hypertension Status: Chronic Assessment and Plan for All Diagnoses:: We will proceed with implantation of loop recorder this AM. Patient can be discharged home later today with recommendations as noted per yesterday's note.
--- NOTE | 2020-05-14 09:43 | HMH.ACPN2 ---
Internal Medicine - PN: Subj *Date: 05/14/20 *Time: 09:43 Interval history: Cardiac catheterization report reviewed. Case discussed with cardiology. Exam Vital signs and Labs for Last 24 Hours: Temp Pulse Resp BP Pulse Ox 98.8 F 100 H 16 114/72 97 05/14/20 08:00 05/14/20 08:00 05/14/20 08:00 05/14/20 08:00 05/14/20 08:00 Laboratory Results - last 24 hr 05/13/20 00:07: POC Glucose 526 H* 05/13/20 05:33: POC Glucose 318 H* 05/13/20 13:57: POC Glucose 258 H 05/13/20 16:33: POC Glucose 253 H 05/13/20 20:45: POC Glucose 243 H 05/14/20 05:17: POC Glucose 206 H 05/14/20 05:53: WBC 6.0, RBC 3.64 L, Hgb 12.7 L, Hct 38.5 L, MCV 105.9 H, MCH 35.1 H, MCHC 33.1, RDW 14.9, Plt Count 175, MPV 8.4, Neut % (Auto) 60.9, Lymph % (Auto) 33.3, [place] % (Auto) 5.3, Eos % (Auto) 0.2, Baso % (Auto) 0.3, Neut # (Auto) 3.6, Lymph # (Auto) 2.0, [place] # (Auto) 0.3, Eos # (Auto) 0.0, Baso # (Auto) 0.0 05/14/20 05:53: Sodium 138, Potassium 3.3 L, Chloride 100, Carbon Dioxide 34 H, Anion Gap 7.3, BUN 10 D, Creatinine 0.80, Estimated Creat Clear 87, Estimated GFR 98, Est GFR ( Amer) 118, Glucose 203 H D, Calcium 8.3 L I & O for Last 24 hours: Intake & Output 05/11/20 05/12/20 05/13/20 05/14/20 11:59 11:59 11:59 11:59 Intake Total 1000 / 1000 1594 / 1594 Output Total 600 / 600 850 / 850 Balance 400 / 400 744 / 744 Weight 178 lb 180 lb - Constitutional no acute distress - *Routine HEENT Exam Head: Present: normocephalic Eye: Present: PERRL ENT: Present: mucous membranes moist - *Routine Neck Exam Present: full ROM - Routine Chest/Breast/Axilla Exam Chest wall: Absent: tenderness - *Routine Respiratory Exam Present: CTA bilaterally - *Routine Cardiovascular Exam Present: RRR - *Routine Abdominal Exam Present: soft. Absent: tenderness - *Routine Extremities Exam Present: edema (2+) Assessment and Plan (1) Syncope Status: Acute Qualifiers: Syncope type: unspecified Qualified Code(s): R55 - Syncope and collapse Category: Medical Code(s): R55 - Syncope and collapse (2) Diabetes mellitus Status: Acute Qualifiers: Diabetes mellitus type: type 2 Diabetes mellitus fci insulin use: unspecified fci insulin use status Diabetes mellitus complication status: with other specified complication Qualified Code(s): E11.69 - Type 2 diabetes mellitus with other specified complication Category: Medical Code(s): E11.9 - Type 2 diabetes mellitus without complications (3) History of endocarditis Status: Chronic Category: Medical Code(s): Z86.79 - Personal history of other diseases of the circulatory system (4) History of hepatitis C Status: Chronic Category: Medical Code(s): Z86.19 - Personal history of other infectious and parasitic diseases (5) Hyperlipidemia Status: Chronic Qualifiers: Hyperlipidemia type: mixed hyperlipidemia Qualified Code(s): E78.2 - Mixed hyperlipidemia Category: Medical Code(s): E78.5 - Hyperlipidemia, unspecified (6) Hypertension Status: Chronic Qualifiers: Hypertension type: essential hypertension Qualified Code(s): I10 - Essential (primary) hypertension Category: Medical Code(s): I10 - Essential (primary) hypertension - Assessment and plan all Dx Assessment and Plan for all problems:: Another additional dose of IV Lasix is ordered today. I have requested that a loop recorder be placed per cardiology.
--- NOTE | 2020-05-14 10:04 | SUR.PREOP ---
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 bp = 117/80, hr = 110, rr = 20, o2 = 97 on ra. pt prepped and ready for procedure, understands all aspects and has no questions or concerns at this time.
--- NOTE | 2020-05-14 10:25 | P.PCN_ITS ---
[facility] Loop Recorder Date: 05/14/20 Time: 10:00 Procedure Performed:: Implantation of loop recorder Indication:: Syncope Technique:: Patient was brought to the cardiac Back Tender [place]. After informed consent obtained, 1% lidocaine with epinephrine was used to anesthetize the site along the left anterior aspect of the chest near the sternal border. Using the preformed scalpel, an incision was made and using the supplied preloaded apparatus, the lo op recorder was placed subcutaneously without difficulty. Following the deployment of the loop recorder interrogation of the device was performed to ensure appropriate voltage was being detected (0.25 mV). Once this was verified, Steri-Strips were placed over the incision and the patient was prepped to discharge home. Patient tolerated the procedure well with minimal discomfort. Impression:: Successful implantation of loop recorder Serial Number:: [id number] Plan:: Routine postop care
[2020-05-14 12:20] LABS: POC Glucose,Bedside 234 (70-110)
--- NOTE | 2020-05-14 13:22 | P.PN_ITS ---
Internal Medicine - PN: Subj *Date: 05/14/20 *Time: 13:22 Interval history: LOOP RECORDER HAS BEEN PLACED. Will discharge, follow up next week. Exam Vital signs and Labs for Last 24 Hours: Temp Pulse Resp BP Pulse Ox 98.8 F 92 H 16 130/86 97 05/14/20 08:00 05/14/20 10:21 05/14/20 10:21 05/14/20 10:21 05/14/20 10:21 Laboratory Results - last 24 hr 05/13/20 00:07: POC Glucose 526 H* 05/13/20 05:33: POC Glucose 318 H* 05/13/20 13:57: POC Glucose 258 H 05/13/20 16:33: POC Glucose 253 H 05/13/20 20:45: POC Glucose 243 H 05/14/20 05:17: POC Glucose 206 H 05/14/20 05:53: WBC 6.0, RBC 3.64 L, Hgb 12.7 L, Hct 38.5 L, MCV 105.9 H, MCH 35.1 H, MCHC 33.1, RDW 14.9, Plt Count 175, MPV 8.4, Neut % (Auto) 60.9, Lymph % (Auto) 33.3, [place] % (Auto) 5.3, Eos % (Auto) 0.2, Baso % (Auto) 0.3, Neut # (Auto) 3.6, Lymph # (Auto) 2.0, [place] # (Auto) 0.3, Eos # (Auto) 0.0, Baso # (Auto) 0.0 05/14/20 05:53: Sodium 138, Potassium 3.3 L, Chloride 100, Carbon Dioxide 34 H, Anion Gap 7.3, BUN 10 D, Creatinine 0.80, Estimated Creat Clear 87, Estimated GFR 98, Est GFR ( Amer) 118, Glucose 203 H D, Calcium 8.3 L 05/14/20 11:28: POC Glucose 234 H I & O for Last 24 hours: Intake & Output 05/12/20 05/13/20 05/14/20 05/15/20 11:59 11:59 11:59 11:59 Intake Total 1000 / 1000 1594 / 1594 Output Total 600 / 600 850 / 850 Balance 400 / 400 744 / 744 Weight 178 lb 180 lb Assessment and Plan (1) Syncope Status: Acute Qualifiers: Syncope type: unspecified Qualified Code(s): R55 - Syncope and collapse Category: Medical Code(s): R55 - Syncope and collapse (2) Diabetes mellitus Status: Acute Qualifiers: Diabetes mellitus type: type 2 Diabetes mellitus fpc insulin use: unspecified fpc insulin use status Diabetes mellitus complication status: with other specified complication Qualified Code(s): E11.69 - Type 2 diabetes mellitus with other specified complication Category: Medical Code(s): E11.9 - Type 2 diabetes mellitus without complications (3) History of endocarditis Status: Chronic Category: Medical Code(s): Z86.79 - Personal history of other diseases of the circulatory system (4) History of hepatitis C Status: Chronic Category: Medical Code(s): Z86.19 - Personal history of other infectious and parasitic diseases (5) Hyperlipidemia Status: Chronic Qualifiers: Hyperlipidemia type: mixed hyperlipidemia Qualified Code(s): E78.2 - Mixed hyperlipidemia Category: Medical Code(s): E78.5 - Hyperlipidemia, unspecified (6) Hypertension Status: Chronic Qualifiers: Hypertension type: essential hypertension Qualified Code(s): I10 - Essential (primary) hypertension Category: Medical Code(s): I10 - Essential (primary) hypertension
--- NOTE | 2020-05-14 14:25 | PC.NURSE ---
Called Dr. Friend's office about pt being a new onset diabetic and wanting to know if pt needs to be sent home with any medications or supplies to check his sugar. Awaiting phone call.
--- NOTE | 2020-05-14 15:30 | PC.NURSE ---
A&OX4. PT HAS TOLERATED ROOM AIR WELL THROUGHOUT SHIFT. RESPIRATIONS REGULAR AND UNLABORED. LUNG SOUNDS BILATERALLY CLEAR. NO COUGH NOTED. HAND DESIGN ENGINEER EQUAL. +2 PULSES NOTED THROUGHOUT. +2 PITTING EDEMA NOTED TO BLE. ACTIVE BOWEL SOUNDS HEARD IN ALL 4 QUADRANTS. DISTENDED AND NONTENDER ABDOMEN. PT REPORTED 1 LARGE BM THIS SHIFT. PT VOIDS PER BATHROOM WITH STANDBY ASSIST. CLEAR YELLOW URINE NOTED. IV WAS REMOVED WITH CATHETER INTACT. 4X4S AND KOBAN APPLIED. PHARMACY EDUCATED PT ON HOME MEDICATIONS. DISCUSSED DISCHARGE INSTRUCTIONS WITH PT AND HE VERBALIZED AN UNDERSTANDING. DRESSING NOTED TO L FOREARM, R UPPER ARM, AND R WRIST. ALL ARE CDI. SCAB NOTED TO L UPPER BACK. SISTER IS HERE TO PICK PT UP. HE IS CURRENTLY SITTING IN BED W CALL LIGHT WITHIN REACH. BED IN LOWEST POSITION. VSS. WILL CONTINUE TO MONITOR.
--- NOTE | 2020-05-14 15:30 | PC.NURSE ---
Dr. Friend called and said he is faxing over an order for metformin to [facility] for the pt. Asked about supplies such as a glucometer for pt to check sugar and he said no; just to take the metformin. Informed pt on new medication being sent to pharmacy. Verbalized understanding.
--- NOTE | 2020-05-15 00:35 | HMH.DCSUM ---
General - General Admission date:: 05/13/20 Discharge date: 05/14/20 HPI HPI: Mr. Lala is a 65yo male with a history of HTN, HLP, BPH, GERD, liver cirrhosis, Hepatitis C with 16wks of Zepatier treatment, and chronic low back pain for which he is disabled. He had been seeing Dr. Friend in the office of [facility] for recent syncopal episodes and had workups by cardiology and neurology including carotid doppler studies, Holter monitor, brain MRI, EEG, and nuclear stress test which have all been unremarkable for the cause of his syncope. He denied any preceeding symptoms such as SOB, dizziness, palpitations, or vision changes. He did admit to some generalized weakness and confusion during the period when he became conscious and found himself on the floor. He stated that he had been passing out and falling almost every day until the past week when he had a period of 4 or 5 days during which he did not fall. The fall-free period ended the previous afternoon when his sister and brother came to check on him and found him down at home. They helped him get up and ensured he was not injured. He reported that later in the day he again woke up on the floor and called EMS for assistance at which point he was transported to [facility] ED for further evaluation. Upon arrival, his serum alcohol level was elevated and blood glucose was 548 with subsequent A1C at 10.9. His acetone was negative. Liver enzymes were elevated and ammonia level was normal. His BNP was elevated at 504. Tox screen was positive for marijuana. CT of the head, CT of the cervical spine, Xray of the pelvis, and CXR were all without acute findings. He was admitted and cardiology was consulted. The following morning after admission, he was sitting up in bed without complaint. He denied any pain, chest pain, or shortness of breath. He reported having 2 or 3 beers yesterday and described drinking few times per month but not more than once or twice per week. Hospital Course Hospital Course: On admission patient was started on Lasix for edema. He was placed on sliding scale insulin coverage. A1c was noted to be 10.9. Cardiology was consulted with the following assessment and plan: 1. Recurrent syncope of unknown etiology. Troponins normal x3, EKG is sinus with no acute ST segment changes the patient did have an elevated blood alcohol level and marijuana in his system. Previous work-up including EEG, Holter and echocardiogram have been unremarkable. Brain MRI did showed moderate amount of atrophy. Recommend proceeding with left heart catheterization to evaluate coronary anatomy as possible source for his syncopal episode. If coronaries without significant obstruction, then consider ILR placement also. Repeat echo pending. 2. Newly diagnosed diabetes mellitus with hemoglobin A1c of 10.9 3. History of hypertension and hypertensive heart disease 4. Alcohol use 5. History of cirrhosis 6. Hyperlipidemia, on statin therapy with LDL of 36 this admission Left heart catheterization with the following results: ANGIOGRAPHIC RESULTS The left main artery Normal The left anterior descending artery Normal The circumflex artery Normal The right coronary artery Dominant normal The MCARTHUR ventriculogram reveals Normal 65% The left ventricular end-diastolic pressure 10 mmHg IMPRESSION Normal coronary arteries Normal ejection fraction Normal left ventricular end-diastolic pressure Patient had no further episodes of syncope and telemetry showed no significant arrhythmias. He had implantation of a loop recorder on 05/14/2020 after which he was stable to be discharged home. Discharged home in stable and satisfactory condition. He was instructed on how to check his blood sugar and was started on Metformin. He was to follow-up with Dr. Friend on 05/19/[address] Panchal on 05/24/2020. see Data for additional test results Objective Vital signs: Temp Pulse Resp BP Pulse Ox 98.3
== END 2020-05-14 15:34 | disposition home or self-care (01) ==
LOC: ER 01:59 → 2ND 02:28
PROVIDERS: Internal Medicine; Admitting Provider Family Medicine; Emergency Provider Emergency Medicine; PCP Family Medicine; Visit Provider Family Medicine
DX: E11.9 Type 2 diabetes mellitus without complications (principal); R55 Syncope and collapse; I10 Essential (primary) hypertension; E78.5 Hyperlipidemia, unspecified; Z87.891 Personal history of nicotine dependence; Z79.899 Other long term (current) drug therapy; K70.30 Alcoholic cirrhosis of liver without ascites; I38 Endocarditis, valve unspecified; B19.20 Unspecified viral hepatitis C without hepatic coma; R06.9 Unspecified abnormalities of breathing
CPT/HCPCS: 33285; 36415; 70450; 71045; 72125; 72170; 80048; 80053; 80061; 80305; 81001; 82009; 82140; 82962; 83036; 83735; 83880; 84484; 85025; 85610; 86328; 93005; 93306; 93458; 96365; 96375; 99152; 99284; C1725; C1769; G0378; J1644; Q9967

== ENCOUNTER 2020-06-12 19:49 | Observation (INO) | payer MEDICARE, MEDICAID, SELFPAY ==
[2020-06-12] VITALS (9 sets, daily range): BP systolic 110–136; BP diastolic 76–88; PULSE 80–100; RESP 16–20; TEMP 36.5–36.9; O2SAT 94–100; BMI 25.7; BMI 25.5
--- NOTE | 2020-06-12 19:47 | ECG_ITS ---
APPROVED REPORT Exam: Resting ECG HR:88 bpm ECG Measurements Heart Rate 88 AXES MT 146 P 65 QRSd 78 QRS 39 QT 368 T 91 QTc 445 Conclusion Normal sinus rhythm Nonspecific ST and T wave abnormality Abnormal ECG Electronically signed by : Bruce Obando, 06/14/2020 07:24:26
--- NOTE | 2020-06-12 19:53 | CT_ITS ---
PROCEDURE: CT HEAD/BRAIN WO CON Referring Doctor: Clint Louie Patient Age:65Y CLINICAL INDICATION: fall with loss of consciousness. Trauma head and neck . Patient unsure were hit head states has been falling frequently recently. Possible old bruise on forehead COMPARISON: MR MR HEAD/BRAIN WO/W CON from 03/10/[address] HEAD/BRAIN WO CON from 05/13/2020 TECHNIQUE: No IV contrast.. Standard axial images were obtained. All CT scans at the facility use one or more dose reduction, viz: automated exposure control, ma/kV adjustment per patient size (including targeted exams where dose is matched to indication, i.e. head), or iterative reconstruction technique. FINDINGS: No acute intracranial findings. No intracranial hemorrhage. No subdural or extra-axial fluid collection is evident. Vague and slight low density throughout the deep white matter cerebral hemispheres reflects chronic deep white matter ischemic gliotic changes, similar to May 13 but no significant change but Mild cerebral atrophy age-appropriate with no significant hydrocephalus.The ventricles and basal cisterns appear are slightly generous secondary to the cerebral atrophy but otherwise unremarkable. No mass lesion or midline shift. Posterior fossa unremarkable and stable. Skull intact-no skull fracture Nomastoid effusions. Mastoid air cells are well developed and clear. Middle ear clear. IAC's symmetric. CP angles clear. Paranasal sinuses. There is mild slightly lobulated mucosal thickening at the right maxillary sinus with additional 18 mm probable retention cyst floor right maxillary sinus. But the left maxillary sinuses clear. Ethmoid air cells, sphenoid and frontal sinuses are clear.. IMPRESSION: No acute intracranial findings. Stable CT brain versus 05/13/2020 Chronic small vessel deep white-matter ischemic gliotic changes cerebral hemispheres-no significant change since previous studies. Mild chronic mucosal thickening right maxillary sinus with likely mucous retention cyst floor right maxillary sinus Dictated by: Miki Ruff MD 06/12/2020 21:33 Miki Ruff MD in [place] 06/12/2020 21:33
--- NOTE | 2020-06-12 19:53 | XR_ITS ---
PROCEDURE: XR CHEST AP Referring Doctor: Clint Louie Patient Age:65Y CLINICAL HISTORY: syncope NO CHEST COMPLAINTS COMPARISON: CR CXR CHEST(2 VIEWS-NOT PORTABLE) from 12/16/2016 CR XR CHEST 2V from 10/08/2019 CR XR CHEST AP from 05/13/2020 FINDINGS: . ap supine cxr performed today. the lungs are well expanded and clear with nothing acute. the cardiomediastinal silhouette and pulmonary vascularity are within normal limits. the lungs are clear without infiltrates, suspicious nodules, or pleural effusions. no acute bony abnormalities. chest wall unremarkable. only incidental note the small loop recorder projects over the left eduardo IMPRESSION: No acute findings. LUNGS CLEAR. Dictated by: Miki Ruff MD 06/13/2020 11:42 Miki Ruff MD in [place] 06/13/2020 11:42
--- NOTE | 2020-06-12 19:54 | CT_ITS ---
PROCEDURE: CT CERVICAL SPINE WO CON Referring Doctor: Clint Louie Patient Age:65Y CLINICAL INDICATION: fall with loss of consciousness but patient hit head but unsure where hit head. Head and neck pain. Frequent falls more recently COMPARISON: CT CT CERVICAL SPINE WO CON from 05/13/2020 TECHNIQUE: No IV contrast . Helical axial images obtained with sagittal and coronal reformats. All CT scans at the facility use one or more dose reduction, viz: automated exposure control, ma/kV adjustment per patient size (including targeted exams where dose is matched to indication, i.e. head), or iterative reconstruction technique. Axial spiral CT scanning performed of the cervical spine beginning at the base of the skull and continuing to the upper T-spine. 3-D multiplanar reconstruction with 3-D manipulation of volumetric data set in image rendering was completed by the radiologist and/or technologist with the supervision of the radiologist on independent workstation FINDINGS: No acute fracture or subluxation at the C-spine. Normal alignment on lateral view... Mild levocurvature at the C-spine on the frontal projection C1-C2 relationships appear stable There is multilevel cervical spondylosis with degenerative disc disease C3- C7 Also degenerative facet changes are also seen throughout the C-spine most evident at C2/3, C3/4 on right C2-C3, disc intact C3/4 degenerative disc narrowing and disease with with endplate spurring and central canal stenosis with bilateral recess and foraminal narrowing most evident to the right. A disc bulge, protrusion midline and just to the left midline at this level C4/5 degenerated narrowed disc. Hypertrophic endplate changes with spur most evident left paracentral additionally in effacing the thecal sac the left. Spinal stenosis with central canal measuring just less than 9 mm at midline with additional effacement to the left. . C5/6 narrowing and changes/ endplate spurring.. Calcified bulging disc most evident central and to left. Prominent canal stenosis of 7.8 mm with bilateral lateral recess and foraminal narrowing a C6/7, degenerative disc disease with endplate spurring with a right paracentral/foraminal disc osteophyte complex-with severe right lateral recess and foraminal narrowing and canal stenosis. C7/T1 disc intact The lung apices are clear . Note the generous retention cyst and mucosal thickening floor right maxillary sinus IMPRESSION: 1. No acute fracture nor subluxation cervical spine. No significant change at C-spine since May 13 2. Multilevel cervical spondylosis with canal stenosis lateral recess and foraminal narrowing multiple levels.. See above text for a detailed description.. . Central canal stenosis most evident at at C3/4, C4/5 and C5/6 levels.. . Foraminal encroachment is for most evident to the right at C6/7 fall base C5/6; and to the left C4/5, C5/6 C3/4 Dictated by: Miki Ruff MD 06/13/2020 16:16 Miki Ruff MD in [place] 06/13/2020 16:16
--- NOTE | 2020-06-12 19:56 | HMH.EDGENADL ---
ED Disposition Clinical Impression: Orthostatic dizziness Syncope Qualifiers: Syncope type: unspecified Qualified Code(s): R55 - Syncope and collapse Uncontrolled diabetes mellitus Qualifiers: Diabetes mellitus type: type 2 Glycemic state: with hyperglycemia Qualified Code(s): E11.65 - Type 2 diabetes mellitus with hyperglycemia Disposition: Admitted As Inpatient Condition on Discharge: Good - Critical Care Critical Care Time: No Attestation: On , the high probability of a clinically significant, sudden or life threatening deterioration of the following system(s) required my full and direct attention, intervention and personal management. The time I documented below is in addition to time spent performing reported procedures but includes the following listed in this critical care notation. Medical Decision Making - Medical Records Medical records reviewed: Yes: I reviewed the patient's medical records. - Carlos Inquiry Pt receiving controlled substance: No Vital Signs: 06/12/20 19:49 06/12/20 20:00 06/12/20 20:30 Temperature 98.4 F 97.7 F Temperature Source Oral Oral Pulse Rate [Left Radial] 95 H 97 H 83 Respiratory Rate 16 20 Blood Pressure [Right Arm] 123/84 123/84 110/76 Blood Pressure Mean [Right Arm] 97 97 87 Blood Pressure Source [Right Arm] Automatic Cuff Automatic Cuff Automatic Cuff Blood Pressure Position [Right Arm] Supine Supine Supine 02 Sat by Pulse Oximetry 94 L 99 96 Oxygen Delivery Method Room Air Room Air 06/12/20 21:00 06/12/20 21:30 06/12/20 22:00 Temperature Temperature Source Pulse Rate [Left Radial] 85 80 80 Respiratory Rate Blood Pressure [Right Arm] 136/88 126/88 117/86 Blood Pressure Mean [Right Arm] 104 100 96 Blood Pressure Source [Right Arm] Automatic Cuff Automatic Cuff Automatic Cuff Blood Pressure Position [Right Arm] Supine Supine 02 Sat by Pulse Oximetry 98 Oxygen Delivery Method - Lab Data Lab results reviewed: Yes: I reviewed the patient's lab results. Lab Results 06/12/20 19:55: WBC 8.6, RBC 3.94 L, Hgb 13.8 L, Hct 41.5 L, MCV 105.3 H, MCH 35.2 H, MCHC 33.4, RDW 15.8, Plt Count 178, MPV 8.8, Neut % (Auto) 71.4, Lymph % (Auto) 23.3, [place] % (Auto) 5.0, Eos % (Auto) 0.0 L, Baso % (Auto) 0.3, Neut # (Auto) 6.1, Lymph # (Auto) 2.0, [place] # (Auto) 0.4, Eos # (Auto) 0.0, Baso # (Auto) 0.0 06/12/20 19:55: Sodium 131 L, Potassium 3.2 L, Chloride 90 L, Carbon Dioxide 23, Anion Gap 21.2 H, BUN 10, Creatinine 0.70, Estimated Creat Clear 92, Estimated GFR 114, Est GFR ( Amer) 138, Glucose 456 H*, Calcium 8.9, Total Bilirubin 1.3, AST 63 H, ALT 74, Alkaline Phosphatase 113, Troponin I 0.03, Total Protein 6.6, Albumin 4.0, Globulin 2.6, Albumin/Globulin Ratio 1.5 06/12/20 19:55: Plasma/Serum Alcohol 183 H 06/12/20 19:55: SARS-CoV-2 IgG Ab (Rapid) Negative, SARS-CoV-2 IgM Ab (Rapid) Negative 06/12/20 21:00: Urine Color Yellow, Urine Appearance Clear, Urine pH 6.5, Ur Specific [place] 1.010, Urine Protein Negative, Urine Glucose (UA) 3+, Urine Ketones Negative, Urine Blood Trace-l, Urine Nitrate Negative, Urine Bilirubin Negative, Urine Urobilinogen 0.2, Ur Leukocyte Esterase Negative, Urine RBC Occasional, Amorphous Sediment Trace Result diagrams: 06/12/20 19:55 06/12/20 19:55 Orders (Tests/Meds): ED MEDICATIONS Generic Name Dose Route Start Last Admin Trade Name Freq PRN Reason Stop Dose Admin Lactated Ringer's 500 mls @ 999 mls/hr 06/12/20 21:00 06/12/20 21:01 Lactated Ringer's 1000 Ml Bag IV 06/12/20 21:30 999 mls/hr .Q31M OSIRIS Administration Discontinued Medications Generic Name Dose Route Start Last Admin Trade Name Freq PRN Reason Stop Dose Admin Insulin Human Regular 10 unit 06/12/20 20:56 06/12/20 21:01 Insulin Human Regular 100 Units/Ml 10ml Vial SQ 06/12/20 20:57 10 unit ONCE ONE Administration Potassium Chloride 40 meq 06/12/20 20:55 06/12/20 21:00 Potassium Chloride 20meq Tab PO 11/28/20 20:56
[2020-06-12 20:18] LABS: Basophils % 0.3 % (0.1-2.0); Hematocrit 41.5 % (42.0-52.0); Hemoglobin 13.8 g/dL (14.1-18.0); Lymphocytes % 23.3 % (10-50); Mean Corpuscular HGB Conc 33.4 g/dL (31.8-35.4); Mean Corpuscular Hemoglobin 35.2 pg (27.0-31.2); Mean Corpuscular Volume 105.3 fl (80-94); Mean Platelet Volume 8.8 fl (7.4-10.4); Monocytes # 0.4 K/mm3 (0.1-1.0); Neutrophils # 6.1 K/mm3 (1.8-7.8); Neutrophils % 71.4 % (37.0-80.0); Platelet Count 178 K/mm3 (142-424); Red Blood Count 3.94 M/mm3 (4.60-6.20); Red Cell Distribution Width 15.8 % (11.5-17.5); White Blood Count 8.6 K/mm3 (4.8-10.8)
[2020-06-12 20:20] LABS: Chloride 90 mmol/L (98-107); Potassium 3.2 mmoL/L (3.5-5.1); Sodium 131 mmol/L (136-145)
[2020-06-12 20:22] LABS: Ethyl Alcohol 183 mg/dl (0-10)
[2020-06-12 20:23] LABS: Alanine Aminotransferase 74 U/L (12-78); Albumin/Globulin Ratio 1.5 (1.1-1.8); Alkaline Phosphatase 113 U/L (38-126); Anion Gap 21.2 mEq/L (5-15); Aspartate Amino Transferase 63 U/L (17-59); Bilirubin,Total 1.3 mg/dl (0.2-1.3); Blood Urea Nitrogen 10 mg/dl (9-20); Calcium 8.9 mg/dl (8.4-10.2); Carbon Dioxide 23 mmol/L (22.0-30.0); Creatinine Clearance Estimated 92 mL/min (50-200); Estimated Glomerular Filt Rate 114 ml/min (>60); GFR (African American) 138 ML/MIN (>60); Globulin 2.6 g/dL (1.3-3.2); Total Protein,Serum 6.6 g/dl (6.3-8.2)
[2020-06-12 20:35] LABS: Troponin I 0.03 ng/ml (0.00-0.034)
[2020-06-12 20:53] LABS: Glucose 456 mg/dl (74-100)
--- NOTE | 2020-06-12 20:53 | PC.NURSE ---
Critical Glucose called from lab and Dr Garcia Notified
[2020-06-12 21:03] LABS: Microscopic, Urine URINE MICROSCOPIC (MICROSCOPIC)
[2020-06-12 21:07] LABS: Appearance,Urine CLEAR (Clear); Bilirubin,Urine Negative (Negative); Blood, Urine TRACE-L (Negative); Color,Urine YELLOW (Yellow); Glucose,Urine (UA) 3+ (Negative); Ketones,Urine Negative (Negative); Leukocyte Esterase,Urine Negative (Negative); Nitrate,Urine Negative (Negative); PH,Urine 6.5 (5.0-8.5); Protein,Urine Negative (Negative); Urobilinogen,Urine 0.2 EU/dl (0.2)
[2020-06-12 21:12] LABS: Amorphous Sediment,Urine Trace /lpf; RBC,Urine Occasional #/hpf (0-3)
[2020-06-12 21:20] LABS: Coronavirus 19 IgG Antibody Negative (Negative); Coronavirus 19 IgM Antibody Negative (Negative)
--- NOTE | 2020-06-12 22:23 | PC.NURSE ---
Dr Garcia spoke with Dr Hunter for admission
--- NOTE | 2020-06-12 23:33 | PC.NURSE ---
patient up to floor via wheelchair.
--- NOTE | 2020-06-13 01:02 | PC.WOUNDNOTE ---
Wound Location: LT upper arm Length: 1in Width:1 in Depth: Undermining Y/N: Tunneling cm: Granulation %: Slough/necrotic tissue %: Inflammation/swelling Y/N:Y Pain and/or tenderness Y/N: Exudate: Serosanguinous Sanguinous y Serosanguinous Seropurulent Purulent Color: Clear Mary Cloudy/milky [place] Red Y Green Yellow Brown [place] Blue Y Consistency: Thick Thin Amount: None Scant Y Small Moderate Large Odor Y/N:
--- NOTE | 2020-06-13 01:17 | PC.WOUNDNOTE ---
Wound Location: Length: Width: Depth: Undermining Y/N: Tunneling cm: Granulation %: Slough/necrotic tissue %: Inflammation/swelling Y/N: Pain and/or tenderness Y/N: Exudate: Serosanguinous Sanguinous Serosanguinous Seropurulent Purulent Color: Clear Mary Cloudy/milky [place] Red Green Yellow Brown [place] Blue Consistency: Thick Thin Amount: None Scant Small Moderate Large Odor Y/N:
--- NOTE | 2020-06-13 01:18 | PC.WOUNDNOTE ---
Wound Location: lower lt arm Length: 8mm Width:2mm Depth: Undermining Y/N: Tunneling cm: Granulation %: Slough/necrotic tissue %: Inflammation/swelling Y/N: y Pain and/or tenderness Y/N: Exudate: Serosanguinous Sanguinous Serosanguinous Seropurulent Purulent Color: Clear Mary Cloudy/milky [place] Red y Green Yellow Brown [place] Blue Consistency: Thick Thin Amount: None y Scant Small Moderate Large Odor Y/N:
--- NOTE | 2020-06-13 01:21 | PC.WOUNDNOTE ---
Wound Location: RT elbow Length:3mm Width:3mm Depth: Undermining Y/N: Tunneling cm: Granulation %: Slough/necrotic tissue %: Inflammation/swelling Y/N:y Pain and/or tenderness Y/N: Exudate: Serosanguinous Sanguinous Serosanguinous y Seropurulent Purulent Color: Clear Mary Cloudy/milky [place] Red y Green Yellow Brown [place] Blue Consistency: Thick Thin Amount: None Scant Y Small Moderate Large Odor Y/N:
--- NOTE | 2020-06-13 01:23 | PC.WOUNDNOTE ---
Wound Location: lt hand Length:5mm Width:4mm Depth: Undermining Y/N: Tunneling cm: Granulation %: Slough/necrotic tissue %: Inflammation/swelling Y/N: y Pain and/or tenderness Y/N: Exudate: Serosanguinous y Sanguinous Serosanguinous Seropurulent Purulent Color: Clear Mary Cloudy/milky [place] Red y Green Yellow Brown [place] Blue Consistency: Thick Thin Amount: None Scant y Small Moderate Large Odor Y/N:
--- NOTE | 2020-06-13 01:24 | PC.WOUNDNOTE ---
Wound Location: rt hand Length:6 mm Width: 5mm Depth: Undermining Y/N: Tunneling cm: Granulation %: Slough/necrotic tissue %: Inflammation/swelling Y/N: Pain and/or tenderness Y/N: Exudate: Serosanguinous y Sanguinous Serosanguinous Seropurulent Purulent Color: Clear Mary Cloudy/milky [place] Red y Green Yellow Brown [place] Blue Consistency: Thick Thin Amount: None Scant y Small Moderate Large Odor Y/N:
--- NOTE | 2020-06-13 02:09 | PC.NURSE ---
unable to complete Med Rec due to pt not knowing what medications he takes
[2020-06-13 04:00] VITALS: BP 126/74; PULSE 101; RESP 14; TEMP 36.7; O2SAT 96
--- NOTE | 2020-06-13 04:35 | PC.NURSE ---
Pt A&OX4 lungs CTA. pt denies SOA or pain. bed alarm activated. pt has rested quietly this shift.
[2020-06-13 05:00] VITALS: BMI 25.7
[2020-06-13 05:22] LABS: POC Glucose,Bedside 185 (70-110)
[2020-06-13 07:05] LABS: Basophils % 0.5 % (0.1-2.0); Eosinophils % 0.2 % (0.1-12.0); Hematocrit 39.4 % (42.0-52.0); Hemoglobin 13.6 g/dL (14.1-18.0); Lymphocytes # 2.3 K/mm3 (0.7-4.5); Lymphocytes % 29.7 % (10-50); Mean Corpuscular HGB Conc 34.4 g/dL (31.8-35.4); Mean Corpuscular Volume 101.7 fl (80-94); Mean Platelet Volume 8.6 fl (7.4-10.4); Monocytes # 0.4 K/mm3 (0.1-1.0); Monocytes % 5.6 % (1.7-9.3); Neutrophils % 64.1 % (37.0-80.0); Platelet Count 172 K/mm3 (142-424); Red Blood Count 3.87 M/mm3 (4.60-6.20); White Blood Count 7.7 K/mm3 (4.8-10.8)
[2020-06-13 07:09] LABS: Chloride 96 mmol/L (98-107)
[2020-06-13 07:10] LABS: Potassium 3.1 mmoL/L (3.5-5.1); Sodium 135 mmol/L (136-145)
[2020-06-13 07:13] LABS: Anion Gap 7.1 mEq/L (5-15); Blood Urea Nitrogen 9 mg/dl (9-20); Calcium 8.7 mg/dl (8.4-10.2); Carbon Dioxide 35 mmol/L (22.0-30.0); Creatinine Clearance Estimated 92 mL/min (50-200); Estimated Glomerular Filt Rate 114 ml/min (>60); GFR (African American) 138 ML/MIN (>60); Glucose 122 mg/dl (74-100)
[2020-06-13 08:00] VITALS: BP 115/73; PULSE 98; RESP 18; TEMP 36.8; O2SAT 98
[2020-06-13 08:38] LABS: Hemoglobin A1C 12.8 % (4.0-6.0)
--- NOTE | 2020-06-13 10:21 | HMH.PHAVTE ---
[facility] Pharmacy VTE Monitoring - Patient Demographics Admission date: 06/12/20 Report Date: 06/13/20 Time: 10:21 Allergies/Adverse Reactions: Patient Allergies No Known Allergies Allergy (Verified 05/24/20 09:38) Height: 1.83 m Weight: 85.956 kg Patient Problems: Current Active Problems Syncope (Acute) Orthostatic dizziness (Acute) Uncontrolled diabetes mellitus (Acute) - VTE Risk Labs: VTE Related Lab Results Hgb 13.6 g/dL (14.1-18.0) L 06/13/20 06:35 Hct 39.4 % (42.0-52.0) L 06/13/20 06:35 Plt Count 172 K/mm3 (142-424) 06/13/20 06:35 BUN 9 mg/dl (9-20) 06/13/20 06:35 Creatinine 0.70 mg/dl (0.66-1.25) 06/13/20 06:35 Estimated Creat Clear 92 mL/min (50-200) 06/13/20 06:35 Was VTE Risk Assessment Performed: Yes VTE Score: 1 - Prophylaxis VTE Prophylaxis Ordered?: Yes Types of VTE Prophylaxis: IPCS Thigh High Location of Applied Device: Bilateral Lower Extremeties
[2020-06-13 11:20] LABS: POC Glucose,Bedside 120 (70-110)
--- NOTE | 2020-06-13 11:37 | HMH.PHAINT ---
HOME MEDICATIONS RECONCILED FROM [facility].
--- NOTE | 2020-06-13 13:02 | HMH.HP ---
*Admission Date: 06/12/20 *Chief complaint: Syncope *History of present illness: This 65-year-old white male is readmitted with another fall after drinking alcohol. He has had numerous falls in the recent past. There has been concern for orthostatic hypotension but alcohol abuse also seems to be part of the picture. He has a past history of cirrhosis from hepatitis C and a past history of pericarditis. He has been seen by cardiology and recently had placement of a loop recorder. We need to correlate the report from this recorder with his recent falls. His diabetes has developed over the past year and seems to gradually be worsening. His A1c has increased over the past few months. At this episode he admits to drinking wine though he says he only drank about a third of a bottle. He is not sure whether he lost consciousness but he was aware of becoming dizzy and aware that he was going to have a syncopal episode. The following is the emergency room report narrative: 65-year-old male with alcoholism and hepatitis C cirrhosis presenting after a syncopal episode and questionable head strike and loss of consciousness. Nontoxic, afebrile, hemodynamically stable, nonfocal, neuro intact, atraumatic exam. CT head negative for acute disease. CT C-spine negative for acute disease. EKG nonischemic and without arrhythmia. Initial troponin is 0.03 chest x-ray was negative for acute disease. Ethanol level is up at 183 but patient is clinically sober. He does have a recent history of multiple falls and old injuries to his arms I think it is most appropriate to admit him for safety. I do believe that this is likely from orthostatic dizziness. Additionally, his glucose is in the 400s and because he is a poorly controlled diabetic, I have started subcutaneous insulin for him. I also repleted his potassium with 40 mEq orally. I spoke to the on-call physician for admission and they will bring him into the hospital for further work-up and management. Patient remained stable in the ED [facility] History Medical History: Reports:: Arrhythmia (Possible, with placement of loop recorder), BPH, Diabetes Mellitus Type 2, Gastroesophageal Reflux Disease(GERD), Hepatitis (Hepatitis C, treated and followed), Hyperlipidemia, Hypertension, Kidney Stones, Renal Disease Denies:: Cancer, Diabetes Mellitus Type 1, Internal Pacemaker, Lung Disease, MRSA, Seizures *Have you ever received a pneumonia vaccine?: Yes *Have you received a flu vaccine this season?: Yes Other Medical History: Reports: Liver Disease (Cirrhosis from hepatitis C), Other Other Surgeries: Yes: Colonoscopy. No: Pacemaker (Loop recorder) Amputation: No Fractures: No - *Social History Last grade of school completed: High school graduate Smoking Status: Never smoker Alcohol Intake: current Alcohol Intake Frequency:: 3 or more drinks per day Substance Use Type: marijuana *Occupational Status:: disabled Housing: house Household Members: none *Travel in the last 8 weeks: None Family Hx:: Diabetes, Heart Attack, Hyperlipidemia, Hypertension Review of Systems - Constitutional Denies anorexia, Denies chills - Eyes Denies change in vision - ENT Reports dizziness, Denies abnormal hearing, Denies nasal congestion - *Cardiovascular Reports lightheadedness, Denies chest pain, Denies shortness of breath with activity (Denies), Denies rapid, pounding, or irregular heartbeat (Not aware) - *Respiratory Denies chest congestion, Denies cough, Denies shortness of breath - *Gastrointestinal Denies abdominal pain, Denies coffee ground vomit, Denies vomiting - *Genitourinary Denies difficulty urinating - *Musculoskeletal Reports muscle weakness - Integumentary/Breasts Reports new lesions (Contusions and abrasions) - *Neurologic Reports dizziness, Reports weakness, Denies other visual disturbances - Psychiatric Denies panic attacks Meds Home Medications Medication Instructions Recorded Confirmed Type Ator
[2020-06-13 13:19] VITALS: PULSE 130
--- NOTE | 2020-06-13 13:25 | ECG_ITS ---
APPROVED REPORT Exam: Resting ECG HR:126 bpm ECG Measurements Heart Rate 126 AXES AK 126 P 72 QRSd 66 QRS 53 QT 300 T -5 QTc 434 Conclusion Sinus tachycardia with premature atrial complexes Nonspecific ST abnormality Abnormal ECG Electronically signed by : Bruce Obando, 06/14/2020 07:23:03
[2020-06-13 13:34] LABS: Chloride 95 mmol/L (98-107); Potassium 3.6 mmoL/L (3.5-5.1); Sodium 135 mmol/L (136-145)
[2020-06-13 13:37] LABS: Anion Gap 10.6 mEq/L (5-15); Blood Urea Nitrogen 11 mg/dl (9-20); Calcium 8.8 mg/dl (8.4-10.2); Carbon Dioxide 33 mmol/L (22.0-30.0); Creatinine Clearance Estimated 92 mL/min (50-200); Estimated Glomerular Filt Rate 114 ml/min (>60); GFR (African American) 138 ML/MIN (>60); Glucose 202 mg/dl (74-100)
[2020-06-13 13:50] LABS: Troponin I 0.04 ng/ml (0.00-0.034)
[2020-06-13 16:00] VITALS: BP 135/87; PULSE 117; PULSE 90; RESP 18; TEMP 36.7; O2SAT 93
[2020-06-13 16:59] LABS: POC Glucose,Bedside 200 (70-110)
--- NOTE | 2020-06-13 18:22 | PC.NURSE ---
Pt has been pleasant and cooperative this shift. A&O X4. No complaints of pain. Pt is on room air with sats. >90%. Lungs CTA. Scattered abrasions/skin tears noted to BUE and covered with Telfa, Kerlix, and tape. 2+ pitting edema noted to BLE. Pt ambulates with stand-by assistance and uses the urinal to void clear, yellow urine without issue. No BM this shift. Pt sat up in the recliner for a few hours today. FSBS results have been 120 and 200 today. 20 G peripheral IV in the RT wrist is patent and SL. VSS. Call light within reach. Will continue to monitor.
[2020-06-13 20:00] VITALS: BP 134/74; PULSE 102; PULSE 90; RESP 16; TEMP 37.7; O2SAT 96
[2020-06-13 20:48] LABS: POC Glucose,Bedside 104 (70-110)
[2020-06-14] VITALS: PULSE 100
[2020-06-14 04:00] VITALS: BP 122/77; PULSE 87; PULSE 90; RESP 16; TEMP 37.1; O2SAT 93
[2020-06-14 05:56] VITALS: BMI 25.4
[2020-06-14 06:22] LABS: POC Glucose,Bedside 141 (70-110)
[2020-06-14 07:31] LABS: Basophils % 0.4 % (0.1-2.0); Eosinophils % 0.5 % (0.1-12.0); Hematocrit 38.8 % (42.0-52.0); Hemoglobin 13.2 g/dL (14.1-18.0); Lymphocytes # 2.4 K/mm3 (0.7-4.5); Lymphocytes % 34.5 % (10-50); Mean Corpuscular Hemoglobin 34.9 pg (27.0-31.2); Mean Corpuscular Volume 102.6 fl (80-94); Mean Platelet Volume 9.3 fl (7.4-10.4); Monocytes # 0.4 K/mm3 (0.1-1.0); Monocytes % 5.5 % (1.7-9.3); Neutrophils # 4.1 K/mm3 (1.8-7.8); Neutrophils % 59.2 % (37.0-80.0); Platelet Count 140 K/mm3 (142-424); Red Blood Count 3.78 M/mm3 (4.60-6.20); Red Cell Distribution Width 16.1 % (11.5-17.5); White Blood Count 6.8 K/mm3 (4.8-10.8)
[2020-06-14 07:39] LABS: Chloride 99 mmol/L (98-107); Potassium 3.2 mmoL/L (3.5-5.1); Sodium 135 mmol/L (136-145)
[2020-06-14 07:42] LABS: Anion Gap 5.2 mEq/L (5-15); Blood Urea Nitrogen 8 mg/dl (9-20); Carbon Dioxide 34 mmol/L (22.0-30.0); Creatinine Clearance Estimated 91 mL/min (50-200); Estimated Glomerular Filt Rate 114 ml/min (>60); GFR (African American) 138 ML/MIN (>60)
[2020-06-14 07:43] LABS: Glucose 120 mg/dl (74-100)
[2020-06-14 08:00] VITALS: BP 105/71; PULSE 119; PULSE 120; RESP 16; TEMP 37.3; O2SAT 90
[2020-06-14 08:11] LABS: Calcium 7.9 mg/dl (8.4-10.2)
--- NOTE | 2020-06-14 08:24 | HMH.ACPN2 ---
Internal Medicine - PN: Subj *Date: 06/14/20 *Time: 08:36 Interval history: Patient states he is feeling okay today. He had one episode of nausea when sitting on the commode. He denies having any dizziness and no syncopal episode. He is eating without difficulty. He denies chest pain and shortness of breath. He states he has been told that his heart rate is a little fast. He is voiding QS. Laboratory data this morning reveal potassium of 3.2 with a sodium of 135 renal function is normal. EKG completed yesterday showed a sinus tachycardia with premature atrial complexes and nonspecific ST abnormalities. TSH completed 03/11/2020 was 1.68 Echocardiogram from 05/14/2020: Conclusion 1. Mild biatrial enlargement, normal left ventricular size, mild concentric left ventricular hypertrophy, visually estimated ejection fraction 55% with no regional wall motion abnormality, grade 1 diastolic dysfunction seen without tissue Doppler evidence of raise left atrial pressure. 2. Mild mitral and tricuspid regurgitation. 3. Small pericardial effusion noted. Exam Vital signs and Labs for Last 24 Hours: Temp Pulse Resp BP Pulse Ox 99.1 F 119 H 16 105/71 L 90 L 06/14/20 08:00 06/14/20 08:00 06/14/20 08:00 06/14/20 08:00 06/14/20 08:00 Laboratory Results - last 24 hr 06/13/20 06:35: Hemoglobin A1c 12.8 H 06/13/20 11:10: POC Glucose 120 H 06/13/20 13:14: Sodium 135 L, Potassium 3.6, Chloride 95 L, Carbon Dioxide 33 H, Anion Gap 10.6, BUN 11, Creatinine 0.70, Estimated Creat Clear 92, Estimated GFR 114, Est GFR ( Amer) 138, Glucose 202 H D, Calcium 8.8, Troponin I 0.04 H 06/13/20 16:46: POC Glucose 200 H 06/13/20 20:13: POC Glucose 104 06/14/20 06:05: POC Glucose 141 H 06/14/20 06:23: WBC 6.8, RBC 3.78 L, Hgb 13.2 L, Hct 38.8 L, MCV 102.6 H, MCH 34.9 H, MCHC 34.0, RDW 16.1, Plt Count 140 L, MPV 9.3, Neut % (Auto) 59.2, Lymph % (Auto) 34.5, [place] % (Auto) 5.5, Eos % (Auto) 0.5, Baso % (Auto) 0.4, Neut # (Auto) 4.1, Lymph # (Auto) 2.4, [place] # (Auto) 0.4, Eos # (Auto) 0.0, Baso # (Auto) 0.0 06/14/20 06:23: Sodium 135 L, Potassium 3.2 L, Chloride 99, Carbon Dioxide 34 H, Anion Gap 5.2, BUN 8 L D, Creatinine 0.70, Estimated Creat Clear 91, Estimated GFR 114, Est GFR ( Amer) 138, Glucose 120 H D, Calcium 7.9 L D I & O for Last 24 hours: Intake & Output 06/11/20 06/12/20 06/13/20 06/14/20 11:59 11:59 11:59 11:59 Intake Total 860 / 860 1340 / 1340 Output Total 1200 / 1200 350 / 350 Balance -340 / -340 990 / 990 Weight 189 lb 8 oz 188 lb 2 oz - Constitutional no acute distress Comments: Sitting up in the bed. Appears quite comfortable. - *Routine Respiratory Exam Present: CTA bilaterally (Anteriorly and posteriorly) - *Routine Cardiovascular Exam Present: RRR, tachycardia (110/min) Comments: Monitor showing sinus rhythm. PACs noted. - *Routine Abdominal Exam Present: soft, normoactive bowel sounds. Absent: tenderness, distended - *Routine Extremities Exam Absent: edema, calf tenderness - *Routine Neurological Exam Present: alert, oriented X3 Assessment and Plan (1) Syncope Status: Acute Qualifiers: Syncope type: unspecified Qualified Code(s): R55 - Syncope and collapse Category: Medical Code(s): R55 - Syncope and collapse (2) Tachycardia Status: Acute Category: Medical Code(s): R00.0 - Tachycardia, unspecified (3) Uncontrolled diabetes mellitus Status: Acute Qualifiers: Diabetes mellitus type: type 2 Glycemic state: with hyperglycemia Qualified Code(s): E11.65 - Type 2 diabetes mellitus with hyperglycemia Category: Medical Code(s): E11.65 - Type 2 diabetes mellitus with hyperglycemia (4) Alcohol intoxication Status: Acute Qualifiers: Complication of substance-induced condition: with unspecified complication Qualified Code(s): F10.929 - Alcohol use, unspecified with intoxication, unspecified Category: Medical Co
[2020-06-14 09:10] LABS: Troponin I 0.05 ng/ml (0.00-0.034)
--- NOTE | 2020-06-14 10:15 | HMH.CNCARD ---
History of Present Illness Consult date: 06/14/20 Requesting physician: Lui Friend Consult reason: known to you Chief complaint: syncope History of present illness: This is a 62-year-old white gentleman who is admitted to the hospital after falling again after drinking alcohol. She has had numerous falls in the past which he attributes to him drinking alcohol. There was some concern for orthostatic hypotension but the patient reports that every time he passes out is after he has consumed a significant amount of alcohol. The patient does have a history of hepatitis C and pericarditis. He does have a loop recorder in place which was downloaded today. He did have one episode of tachycardia with a heart rate around 150- 160 bpm but this does not correlate with his syncopal episode. On the day of his syncope there are no events noted on his loop recorder. He denies any chest pain or pressure. He denies any shortness of breath. He does complain of pain in his rib area on the right side which he states happened after his fall. His initial troponin was 0.03. His troponin today is 0.05. The patient has a history of normal coronary arteries in April 2020. The bump in his troponin was likely from demand ischemia from his syncope. The patient denies any fever, chills, nausea, vomiting, diarrhea, PND or orthopnea. He does complain of shortness of breath in his lower extremities. He states that this has been ongoing since starting to have episodes of syncope. [facility] History I have reviewed the patient's past medical history: Yes Medical History: Reports:: Arrhythmia (Possible, with placement of loop recorder), BPH, Diabetes Mellitus Type 2, Gastroesophageal Reflux Disease(GERD), Hepatitis (Hepatitis C, treated and followed), Hyperlipidemia, Hypertension, Kidney Stones, Renal Disease Denies:: Cancer, Diabetes Mellitus Type 1, Internal Pacemaker (Loop recorder), Lung Disease, MRSA, Seizures *Have you ever received a pneumonia vaccine?: Yes *Have you received a flu vaccine this season?: Yes Other Medical History: Reports: Liver Disease (Cirrhosis from hepatitis C), Other Other Surgeries: Yes: Colonoscopy. No: Pacemaker (Loop recorder) Amputation: No Fractures: No - *Social History Last grade of school completed: High school graduate Smoking Status: Never smoker Alcohol Intake: current Alcohol Intake Frequency:: 3 or more drinks per day Substance Use Type: marijuana *Occupational Status:: disabled Housing: house Household Members: none *Travel in the last 8 weeks: None Family Hx:: Diabetes, Heart Attack, Hyperlipidemia, Hypertension Meds Home Medications Medication Instructions Recorded Confirmed Type Atorvastatin Calcium [Lipitor 10mg 10 mg PO HS 03/27/18 06/13/20 History Tab] Omeprazole 20 mg PO DAILY 10/08/19 06/13/20 History potassium chloride 20 mEq 20 meq PO BID tab 03/11/20 06/13/20 History tablet,extended release(part/cryst) Budesonide [Budesonide EC] 9 mg PO DAILY 05/13/20 06/13/20 History furosemide 20 mg tablet 20 mg PO DAILY tab 05/24/20 06/13/20 History Metformin HCl [Metformin 850mg 850 mg PO DAILY 06/12/20 06/13/20 History Tablet] Metoprolol Succinate [Metoprolol 25 mg PO BID 06/13/20 06/13/20 History Succinate 25mg Tablet*] bisoproloL fumarate [Bisoprolol 5 mg PO DAILY 06/13/20 06/13/20 History Fumarate] predniSONE [Prednisone 5mg 5 mg PO DAILY 06/13/20 06/13/20 History Tab] Allergies Allergy/AdvReac Type Severity Reaction Status Date / Time No Known Allergies Allergy Verified 05/24/20 09:38 Exam Vital signs and Labs for Last 24 Hours: Temp Pulse Resp BP Pulse Ox 99.1 F 119 H 16 105/71 L 90 L 06/14/20 08:00 06/14/20 08:00 06/14/20 08:00 06/14/20 08:00 06/14/20 08:00 Laboratory Results - last 24 hr 06/13/20 11:10: POC Glucose 120 H 06/13/20 13:14: Sodium 135 L, Potassium 3.6, Chloride 95 L, Carbon Dioxide 33 H, Anion Gap 10.6, BUN 11, Creatinine 0.70,
[2020-06-14 12:00] VITALS: BP 116/63; PULSE 105; PULSE 110; RESP 20; TEMP 37.6; O2SAT 93
[2020-06-14 15:06] VITALS: BMI 25.3
[2020-06-14 16:00] VITALS: BP 122/66; PULSE 110; PULSE 112; RESP 18; TEMP 37.8; O2SAT 92
[2020-06-14 17:24] LABS: POC Glucose,Bedside 161 (70-110)
[2020-06-14 17:24] LABS: POC Glucose,Bedside 181 (70-110)
--- NOTE | 2020-06-14 17:33 | PC.NURSE ---
Pt has been A&O X4 t/o shift. No complaints of pain noted thus far. Pt is on room air with sats. >90%. Lungs CTA. Scattered abrasions/skin tears noted to BUE with dsg in place, c/d/i, Pt ambulated with stand-by assistance to restroom. 1 bm noted, he has no c/o pain this shift, no needs at this time, will continue to monitor.
[2020-06-14 20:00] VITALS: BP 111/61; PULSE 108; PULSE 110; RESP 16; TEMP 37.8; O2SAT 92
[2020-06-14 23:17] LABS: POC Glucose,Bedside 124 (70-110)
[2020-06-15] VITALS: BP 114/71; PULSE 104; PULSE 110; RESP 16; TEMP 36.9; O2SAT 94
[2020-06-15 04:00] VITALS: BP 108/68; PULSE 100; PULSE 103; RESP 16; TEMP 37.8; O2SAT 96
--- NOTE | 2020-06-15 04:43 | PC.NURSE ---
No acute changes this shift. Pt has rested well. No complaints voiced. Pt assisted to BR. VSS. Pt is NSR to Sinus Tach on telemetry. BUE with abrasions noted. DSGs changed this shift. Medication administered per mar. No other concerns at this time. Will continue to monitor.
[2020-06-15 05:37] VITALS: BMI 25.4
[2020-06-15 06:30] LABS: POC Glucose,Bedside 121 (70-110)
[2020-06-15 08:00] VITALS: BP 98/65; PULSE 107; PULSE 120; RESP 19; TEMP 36.7; O2SAT 96
--- NOTE | 2020-06-15 09:07 | HMH.ACPN2 ---
Internal Medicine - PN: Subj *Date: 06/15/20 *Time: 09:07 Interval history: Patient states he is doing well this morning. He reports no dizziness or episodes. He has walked to the bathroom without difficulty. He is eating well. Bowels are moving. He denies chest pain and shortness of breath. Patient did have a temperature of 100 point 4 AM After which she received Tylenol and is now 98. Exam Vital signs and Labs for Last 24 Hours: Temp Pulse Resp BP Pulse Ox 98.0 F 107 H 19 98/65 L 96 06/15/20 08:00 06/15/20 08:00 06/15/20 08:00 06/15/20 08:00 06/15/20 08:00 Laboratory Results - last 24 hr 06/14/20 06:23: Troponin I 0.05 H 06/14/20 11:25: POC Glucose 161 H 06/14/20 17:06: POC Glucose 181 H 06/14/20 21:41: POC Glucose 124 H 06/15/20 06:06: POC Glucose 121 H I & O for Last 24 hours: Intake & Output 06/12/20 06/13/20 06/14/20 06/15/20 11:59 11:59 11:59 11:59 Intake Total 860 / 860 1340 / 1340 Output Total 1200 / 1200 350 / 350 250 / 250 Balance -340 / -340 990 / 990 -250 / -250 Weight 189 lb 8 oz 188 lb 2 oz 188 lb 1 oz - Constitutional no acute distress - *Routine Respiratory Exam Present: CTA bilaterally (Anteriorly and posteriorly) - *Routine Cardiovascular Exam Present: RRR (Heart rate range 100 100s 2 AM.) - *Routine Abdominal Exam Present: soft, normoactive bowel sounds. Absent: tenderness - *Routine Extremities Exam Absent: edema, calf tenderness - *Routine Neurological Exam Present: alert, oriented X3 Assessment and Plan (1) Syncope Status: Acute Qualifiers: Syncope type: unspecified Qualified Code(s): R55 - Syncope and collapse Category: Medical Code(s): R55 - Syncope and collapse (2) Tachycardia Status: Acute Category: Medical Code(s): R00.0 - Tachycardia, unspecified (3) Uncontrolled diabetes mellitus Status: Acute Qualifiers: Diabetes mellitus type: type 2 Glycemic state: with hyperglycemia Qualified Code(s): E11.65 - Type 2 diabetes mellitus with hyperglycemia Category: Medical Code(s): E11.65 - Type 2 diabetes mellitus with hyperglycemia (4) Alcohol intoxication Status: Acute Qualifiers: Complication of substance-induced condition: with unspecified complication Qualified Code(s): F10.929 - Alcohol use, unspecified with intoxication, unspecified Category: Medical Code(s): F10.929 - Alcohol use, unspecified with intoxication, unspecified (5) Congestive heart failure Status: Acute Qualifiers: Heart failure type: unspecified Heart failure chronicity: unspecified Qualified Code(s): I50.9 - Heart failure, unspecified Category: Medical Code(s): I50.9 - Heart failure, unspecified (6) Fatigue Status: Acute Qualifiers: Fatigue type: unspecified Qualified Code(s): R53.83 - Other fatigue Category: Medical Code(s): R53.83 - Other fatigue (7) Hypokalemia Status: Acute Category: Medical Code(s): E87.6 - Hypokalemia - Assessment and plan all Dx Assessment and Plan for all problems:: We will recheck BMP and CBC now.
--- NOTE | 2020-06-15 09:42 | XR_ITS ---
PROCEDURE: XR CHEST 2V CLINICAL HISTORY: fever Fever of unknown origin COMPARISON: CR XR CHEST 2V from 10/08/2019 CR XR CHEST AP from 05/13/2020 CR XR CHEST AP from 06/12/2020 FINDINGS: The cardiomediastinal silhouette and pulmonary vascularity are within normal limits. The lungs are clear without infiltrates, suspicious nodules, or pleural effusions. There are bilateral nodular opacities overlying the lower lung zones consistent with nipple shadows. No acute bony findings. IMPRESSION: No acute finding Dictated by: David Lockhart MD 06/15/2020 17:35 David Lockhart MD in [facility] 06/15/2020 17:35
[2020-06-15 09:47] LABS: Basophils % 0.5 % (0.1-2.0); Eosinophils % 0.4 % (0.1-12.0); Hematocrit 41.7 % (42.0-52.0); Hemoglobin 13.6 g/dL (14.1-18.0); Lymphocytes # 2.5 K/mm3 (0.7-4.5); Lymphocytes % 34.4 % (10-50); Mean Corpuscular HGB Conc 32.7 g/dL (31.8-35.4); Mean Corpuscular Hemoglobin 34.6 pg (27.0-31.2); Mean Corpuscular Volume 105.8 fl (80-94); Mean Platelet Volume 9.6 fl (7.4-10.4); Monocytes # 0.4 K/mm3 (0.1-1.0); Monocytes % 5.9 % (1.7-9.3); Neutrophils # 4.3 K/mm3 (1.8-7.8); Neutrophils % 58.8 % (37.0-80.0); Platelet Count 166 K/mm3 (142-424); Red Blood Count 3.94 M/mm3 (4.60-6.20); Red Cell Distribution Width 15.4 % (11.5-17.5); White Blood Count 7.4 K/mm3 (4.8-10.8)
[2020-06-15 09:50] LABS: Chloride 103 mmol/L (98-107); Sodium 137 mmol/L (136-145)
[2020-06-15 09:51] LABS: Potassium 3.7 mmoL/L (3.5-5.1)
[2020-06-15 09:53] LABS: Blood Urea Nitrogen 9 mg/dl (9-20); Creatinine Clearance Estimated 91 mL/min (50-200); Estimated Glomerular Filt Rate 98 ml/min (>60); GFR (African American) 118 ML/MIN (>60)
[2020-06-15 09:54] LABS: Anion Gap 11.7 mEq/L (5-15); Calcium 8.2 mg/dl (8.4-10.2); Carbon Dioxide 26 mmol/L (22.0-30.0); Glucose 141 mg/dl (74-100)
[2020-06-15 10:35] LABS: POC Glucose,Bedside 153 (70-110)
[2020-06-15 12:00] VITALS: BP 100/75; PULSE 72; PULSE 90; RESP 18; TEMP 36.9; O2SAT 98
[2020-06-15 16:00] VITALS: BP 109/73; PULSE 100; PULSE 99; RESP 18; TEMP 37; O2SAT 97
[2020-06-15 16:34] LABS: POC Glucose,Bedside 109 (70-110)
--- NOTE | 2020-06-16 14:42 | HMH.DCSUM ---
General - General Admission date:: 06/12/20 Discharge date: 06/15/20 HPI HPI: This 65-year-old white male is readmitted with another fall after drinking alcohol. He has had numerous falls in the recent past. There has been concern for orthostatic hypotension but alcohol abuse also seems to be part of the picture. He has a past history of cirrhosis from hepatitis C and a past history of pericarditis. He has been seen by cardiology and recently had placement of a loop recorder. We need to correlate the report from this recorder with his recent falls. His diabetes has developed over the past year and seems to gradually be worsening. His A1c has increased over the past few months. At this episode he admits to drinking wine though he says he only drank about a third of a bottle. He is not sure whether he lost consciousness but he was aware of becoming dizzy and aware that he was going to have a syncopal episode. The following is the emergency room report narrative: 65-year-old male with alcoholism and hepatitis C cirrhosis presenting after a syncopal episode and questionable head strike and loss of consciousness. Nontoxic, afebrile, hemodynamically stable, nonfocal, neuro intact, atraumatic exam. CT head negative for acute disease. CT C-spine negative for acute disease. EKG nonischemic and without arrhythmia. Initial troponin is 0.03 chest x-ray was negative for acute disease. Ethanol level is up at 183 but patient is clinically sober. He does have a recent history of multiple falls and old injuries to his arms I think it is most appropriate to admit him for safety. I do believe that this is likely from orthostatic dizziness. Additionally, his glucose is in the 400s and because he is a poorly controlled diabetic, I have started subcutaneous insulin for him. I also repleted his potassium with 40 mEq orally. I spoke to the on-call physician for admission and they will bring him into the hospital for further work-up and management. Patient remained stable in the ED Hospital Course Hospital Course: The patient's initial chest x-ray showed nothing acute. His head CT showed no acute intracranial findings. His cervical spine CT showed no acute fracture or subluxation. He did have an echocardiogram back on 05/14/2020 showing an EF of 55% with grade 1 diastolic dysfunction and small pericardial effusion. He was admitted and his troponin was monitored. He was placed on cardiac telemetry and cardiology was consulted. Dr. Friend did discuss his alcoholism and the dangers to his health. By 06/14/2020, he felt better and only had one episode of nausea while sitting on the commode. He had no dizziness or syncopal episodes. He denied any chest pain or shortness of breath. He was continued on metoprolol. His potassium was low, therefore it was replaced. Cardiology saw the patient and his loop recorder download showed no events at the time of his syncope. He reported he had syncopal episodes after drinking alcohol and he felt they were related to his alcohol consumption. He did have an episode of tachycardia on June 11 at 9 AM in the morning with a heart rate of around 150 and he had some tachycardia on telemetry while in the hospital. Cardiology recommended he continue his Toprol. The patient felt much better by 06/15/2020. He did run a fever of 100 throughout the night but it returned to normal quickly. A BMP, CBC, and chest x-ray were ordered. The labs were unremarkable and his chest x-ray was normal. He was stable to be discharged home will follow up with Dr. Friend in the office. Objective Vital signs: Temp Pulse Resp BP Pulse Ox 98.6 F 99 H 18 109/73 L 97 06/15/20 16:00 06/15/20 16:00 06/15/20 16:00 06/15/20 16:00 06/15/20 16:00 Narrative: - Constitutional no acute distress - *Routine HEENT Exam Head: Present: normocephalic. Absent: atraumatic (Healing contusion and abrasion to the right orbital area)
== END 2020-06-15 18:05 | disposition home or self-care (01) ==
LOC: ER 22:24 → 2ND 22:31
PROVIDERS: Nurse Practitioner Family; Admitting Provider Family Medicine; Emergency Provider Physician Assistant; PCP Family Medicine; Visit Provider Family Medicine
DX: R55 Syncope and collapse (principal); F10.929 Alcohol use, unspecified with intoxication, unspecified; Y90.6 Blood alcohol level of 120-199 mg/100 ml; R29.6 Repeated falls; E87.6 Hypokalemia; I50.9 Heart failure, unspecified; E11.65 Type 2 diabetes mellitus with hyperglycemia; Z79.84 Long term (current) use of oral hypoglycemic drugs; Z79.52 Long term (current) use of systemic steroids; Z95.818 Presence of other cardiac implants and grafts
CPT/HCPCS: 36415; 70450; 71045; 71046; 72125; 80048; 80053; 81001; 82962; 83036; 84484; 85025; 86328; 93005; 96365; 96372; 99284; G0378